=== PATIENT | female | born 1975 | race Caucasian/White ===

== ENCOUNTER 2023-11-30 21:13 | Observation (INO) | payer OTHER, SELFPAY ==
[2023-11-30 21:21] VITALS: BP 134/73; PULSE 66; TEMP 36.6; O2SAT 99; BMI 20.8
--- NOTE | 2023-11-30 21:30 | CT_ITS ---
The [address] [address] Patient Name: RC LEE MRN: [id number] date: 1975 Sex: F Assigned Patient Location: ER Current Patient Location: ER Accession/Order Number: [id number] Exam Date: 11/30/2023 22:35 Report Date: 11/30/2023 23:02 At the request of: DESTINY NUNES Procedure: CT abdomen pelvis w con EXAM: CT abdomen pelvis w con CLINICAL INDICATION: Abdominal pain, hx diverticulitis COMPARISON: None . TECHNIQUE: After the injection of intravenous nonionic iodinated contrast, axial CT of the abdomen, and pelvis was performed from the top of the hemidiaphragms to the inferior osseous pelvis. 2D reformats were obtained. Automatic exposure control radiation dose reduction technology was utilized. FINDINGS: Visualized portion of the lung bases are unremarkable. The liver, spleen, kidneys, adrenal glands and pancreas are within normal limits. Gallbladder is without calcified stones. No abdominal aortic aneurysm. No enlarged lymph nodes, free fluid, or free air. Prominent air and fluid-filled small bowel loops in the right hemiabdomen without overt transition point. Mild diffuse colonic stool burden. Bladder contains a few small intraluminal foci of gas anteriorly. Grossly no suspicious osseous lesions are identified. CT/CT abdomen pelvis w con IMPRESSION: 1. Findings suggesting nonspecific enteritis/ileus. 2. Intravesical gas may reflect recent instrumentation and/or cystitis. Electronically authenticated by: JOAO CHAPIN Date: 11/30/2023 23:02
--- NOTE | 2023-11-30 21:31 | ED_ITS ---
Documented by User: ADELINE Swartz 11/30/23 21:35 HPI - Abdominal Pain General Chief Complaint: Abdominal Pain Stated Complaint: ABDONIMAL PAIN Time Seen by Provider: 11/30/23 21:25 Source: patient Mode of arrival: Wheelchair History of Present Illness HPI narrative: Patient is a 48-year-old female who presents to the emergency department for sudden onset of diffuse low abdominal pain for the last 30 minutes. She states she was eating with a family member in [place] when she had an onset of the pain and drove to this facility for evaluation. She states approximately 5 years ago she was diagnosed with diverticulitis, she had an abscess formation with perforation and had a colostomy that was eventually reversed about 3 years ago. She had a follow-up colonoscopy. She has not had any other abdominal surgeries. She denies urinary symptoms. No flank or back pain. No medications taken prior to arrival. No flulike illness. Related Data Allergies Allergy/AdvReac Type Severity Reaction Status Date / Time No Known Drug Allergies Allergy Verified 11/30/23 21:27 Review of Systems ROS Constitutional Denies: fever or chills Ears, nose, mouth, and throat Denies: throat pain or nasal congestion Cardiovascular Denies: chest pain Respiratory Denies: shortness of breath or cough Gastrointestinal Reports: abdominal pain and nausea; Denies: vomiting or diarrhea Genitourinary Denies: painful urination Musculoskeletal Denies: back pain Integumentary/Breast Denies: rash Endocrine Denies: excessive urination Hematologic/Lymphatic Denies: easy bruising or easy bleeding Exam Narrative Exam Narrative: Gen.: Awake, alert, in no distress; Tearful and anxious Head: Normocephalic, atraumatic ENT: Moist mucous membranes Respiratory: No respiratory distress Gastrointestinal: Abdomen is soft, Tender to palpation in the suprapubic abdomen. Well-healed midline abdominal incision. Voluntary guarding with no rebound. No flank tenderness Extremities: Moves extremities equally, no injuries noted Psych: Tearful, anxious Neuro: No focal neuro deficit Skin: Warm, dry, intact Constitutional Vital Signs, click to edit/add: Last Vital Signs Temp 97.9 F 11/30/23 21:21 Pulse 66 11/30/23 21:21 Resp 16 11/30/23 21:21 BP 134/73 11/30/23 21:21 Pulse Ox 99 11/30/23 21:21 O2 Del Method Room Air 11/30/23 21:21 Course Vital Signs Vital signs: Vital Signs Temperature 97.9 F 11/30/23 21:21 Pulse Rate 66 11/30/23 21:21 Respiratory Rate 16 11/30/23 21:21 Blood Pressure 134/73 11/30/23 21:21 Pulse Oximetry 99 11/30/23 21:21 Oxygen Delivery Method Room Air 11/30/23 21:21 Temperature 97.9 F 11/30/23 21:21 Pulse Rate 66 11/30/23 21:21 Respiratory Rate 16 11/30/23 21:21 Blood Pressure 134/73 11/30/23 21:21 Pulse Oximetry 99 11/30/23 21:21 Oxygen Delivery Method Room Air 11/30/23 21:21 MDM - Abdominal Pain MDM Narrative Medical decision making narrative: 2133: Patient ordered to have IV fluids, pain medication and nausea medication with IV labs, urine and CT ordered for the patient as well. Her vital signs are stable. She is in no acute distress. Case is turned over to attending physician for disposition at this time. Medical Records Attestation: I reviewed the patient's medical records. Lab Data Attestation: I reviewed the patient's lab results. Labs: Lab Results 11/30/23 11/30/23 Range/Units 21:39 21:41 WBC 6.9 (4.0-11.0) 10^3/uL RBC 4.47 (4.20-5.40) 10^6/uL Hgb 12.9 (12.0-16.0) g/dL Hct 39.5 (36.0-48.0) % MCV 88.4 (81.0-99.0) fL MCH 28.9 (26.7-34.0) pg MCHC 32.7 (29.9-35.2) g/dL RDW 13.0 (11.0-15.0) % Plt Count 291 (150-450) 10^3/uL MPV 10.4 (9.5-13.5) fL Neut % (Auto) 39.6 L (43.0-75.0) % Lymph % (Auto) 51.7 (20.5-60.0) % [place] % (Auto) 5.7 (1.7-12.0) % Eos % (Auto) 1.7 (0.9-7.0) % Baso % (Auto) 1.2 (0.2-2.0) % Neut # (Auto) 2.7 (1.4-6.5) 10^3/uL Lymph # (Auto) 3.6 (1.2-3.8) 10^3/uL [place] # (Auto) 0.4 (0.3-0.8) 10^3/uL Eos # (Auto) 0.1 (0.0-0.7) 10^3/uL Baso # (Auto) 0.1 (0.0-0.1) 10^3/uL Abs Immat Gran (auto) 0.01 (0.00-0.03) 10^3/uL Imm/Tot Granulo (auto) 0.1 (0.0-0.5) % Sodium 142 (136-145) mmol/L Potassium 3.5 (3.5-5.1) mmol/L Chloride 104 (98-107) mmol/L Carbon Dioxide 29.3 (21.0-32.0) mmol/L Anion Gap 12.2 BUN 14.0 (7.0-18.0) mg/dL Creatinine 0.83 (0.55-1.02) mg/dL Est GFR ( Amer) >60 (>=60) Est GFR (Non-Af Amer) >60 (>=60) BUN/Creatinine Ratio 16.9 Glucose 101 (74-106) mg/dL Lactate 1.0 (0.4-2.0) mmol/L Calcium 9.3 (8.5-10.1) mg/dL Total Bilirubin 0.3 (0.2-1.0) mg/dL AST 12 L (15-37) U/L ALT 18 (14-59) U/L Alkaline Phosphatase 59 (46-116) U/L Total Protein 7.6 (6.4-8.2) g/dL Albumin 4.1 (3.4-5.0) g/dL Globulin 3.5 g/dL Albumin/Globulin Ratio 1.2 Lipase 33.0 (16.0-77.0) U/L Urine Color Lt. yellow (YELLOW) Urine Clarity Clear (CLEAR) Urine pH 7.0 (5.0-9.0) Ur Specific [place] 1.010 (1.005-1.025) Urine Protein Negative (NEG/TRACE) mg/dL Urine Glucose (UA) Negative (NEGATIVE) mg/dL Urine Ketones Negative (NEGATIVE) mg/dL Urine Occult Blood Negative (NEGATIVE) Urine Nitrite Negative (NEGATIVE) Urine Bilirubin Negative (NEGATIVE) Urine Urobilinogen 0.2 (0.2-1.0) EU/dL Ur Leukocyte Esterase Moderate A (NEGATIVE) Urine RBC None seen (0-2) #/HPF Urine WBC 5-10 A (NONE SEEN) #/HPF Ur Squamous Epith Cells Few A (NONE/RARE) #/LPF Urine Crystals None seen (None Seen) #/HPF Urine Bacteria Small A (NONE SEEN) #/HPF Urine Casts None seen (NONE SEEN) #/LPF Urine Mucus None seen (NONE SEEN) Ur Culture Indicated? Yes Discharge Plan Discharge Chief Complaint: Abdominal Pain Clinical Impression: UTI (urinary tract infection), Enteritis, Abdominal pain Print Language: Malay Referrals: Harrison Gonzalez MD [Primary Care Provider] - 1 week Documented by User: Chino Carvalho MD 12/01/23 00:48 HPI - Abdominal Pain General Chief Complaint: Abdominal Pain Stated Complaint: ABDONIMAL PAIN Time Seen by Provider: 11/30/23 21:25 Related Data Allergies Allergy/AdvReac Type Severity Reaction Status Date / Time No Known Drug Allergies Allergy Verified 11/30/23 21:27 Exam Constitutional Vital Signs, click to edit/add: Last Vital Signs Temp 97.9 F 11/30/23 21:21 Pulse 66 11/30/23 21:21 Resp 16 11/30/23 21:21 BP 134/73 11/30/23 21:21 Pulse Ox 99 11/30/23 21:21 O2 Del Method Room Air 11/30/23 21:21 Course Vital Signs Vital signs: Vital Signs Temperature 97.9 F 11/30/23 21:21 Pulse Rate 66 05/12/24 21:21 Respiratory Rate 16 11/30/23 21:21 Blood Pressure 134/73 11/30/23 21:21 Pulse Oximetry 99 11/30/23 21:21 Oxygen Delivery Method Room Air 11/30/23 21:21 Temperature 97.9 F 11/30/23 21:21 Pulse Rate 66 11/30/23 21:21 Respiratory Rate 16 11/30/23 21:21 Blood Pressure 134/73 11/30/23 21:21 Pulse Oximetry 99 11/30/23 21:21 Oxygen Delivery Method Room Air 11/30/23 21:21 MDM - Abdominal Pain MDM Narrative Medical decision making narrative: 2133: Patient ordered to have IV fluids, pain medication and nausea medication with IV labs, urine and CT ordered for the patient as well. Her vital signs are stable. She is in no acute distress. Case is turned over to attending leonardoy sician for disposition at this time. CT with findings of ileus/enteritis. patient has no nausea of vomiting. No clinical sign of obstruction. UA positive. Patient re examined and still has pain and abdominal tenderness. Additional pain meds ordered along with antibiotics. Discussed with the hospitalist and will plan obs admission mainly due to her continued pain and need for pain medication Lab Data Labs: Lab Results 11/30/23 11/30/23 Range/Units 21:39 21:41 WBC 6.9 (4.0-11.0) 10^3/uL RBC 4.47 (4.20-5.40) 10^6/uL Hgb 12.9 (12.0-16.0) g/dL Hct 39.5 (36.0-48.0) % MCV 88.4 (81.0-99.0) fL MCH 28.9 (26.7-34.0) pg MCHC 32.7 (29.9-35.2) g/dL RDW 13.0 (11.0-15.0) % Plt Count 291 (150-450) 10^3/uL MPV 10.4 (9.5-13.5) fL Neut % (Auto) 39.6 L (43.0-75.0) % Lymph % (Auto) 51.7 (20.5-60.0) % [place] % (Auto) 5.7 (1.7-12.0) % Eos % (Auto) 1.7 (0.9-7.0) % Baso % (Auto) 1.2 (0.2-2.0) % Neut # (Auto) 2.7 (1.4-6.5) 10^3/uL Lymph # (Auto) 3.6 (1.2-3.8) 10^3/uL [place] # (Auto) 0.4 (0.3-0.8) 10^3/uL Eos # (Auto) 0.1 (0.0-0.7) 10^3/uL Baso # (Auto) 0.1 (0.0-0.1) 10^3/uL Abs Immat Gran (auto) 0.01 (0.00-0.03) 10^3/uL Imm/Tot Granulo (auto) 0.1 (0.0-0.5) % Sodium 142 (136-145) mmol/L Potassium 3.5 (3.5-5.1) mmol/L Chloride 104 (98-107) mmol/L Carbon Dioxide 29.3 (21.0-32.0) mmol/L Anion Gap 12.2 BUN 14.0 (7.0-18.0) mg/dL Creatinine 0.83 (0.55-1.02) mg/dL Est GFR ( Amer) >60 (>=60) Est GFR (Non-Af Amer) >60 (>=60) BUN/Creatinine Ratio 16.9 Glucose 101 (74-106) mg/dL Lactate 1.0 (0.4-2.0) mmol/L Calcium 9.3 (8.5-10.1) mg/dL Total Bilirubin 0.3 (0.2-1.0) mg/dL AST 12 L (15-37) U/L ALT 18 (14-59) U/L Alkaline Phosphatase 59 (46-116) U/L Total Protein 7.6 (6.4-8.2) g/dL Albumin 4.1 (3.4-5.0) g/dL Globulin 3.5 g/dL Albumin/Globulin Ratio 1.2 Lipase 33.0 (16.0-77.0) U/L Urine Color Lt. yellow (YELLOW) Urine Clarity Clear (CLEAR) Urine pH 7.0 (5.0-9.0) Ur Specific [place] 1.010 (1.005-1.025) Urine Protein Negative (NEG/TRACE) mg/dL Urine Glucose (UA) Negative (NEGATIVE) mg/dL Urine Ketones Negative (NEGATIVE) mg/dL Urine Occult Blood Negative (NEGATIVE) Urine Nitrite Negative (NEGATIVE) Urine Bilirubin Negative (NEGATIVE) Urine Urobilinogen 0.2 (0.2-1.0) EU/dL Ur Leukocyte Esterase Moderate A (NEGATIVE) Urine RBC None seen (0-2) #/HPF Urine WBC 5-10 A (NONE SEEN) #/HPF Ur Squamous Epith Cells Few A (NONE/RARE) #/LPF Urine Crystals None seen (None Seen) #/HPF Urine Bacteria Small A (NONE SEEN) #/HPF Urine Casts None seen (NONE SEEN) #/LPF Urine Mucus None seen (NONE SEEN) Ur Culture Indicated? Yes Discharge Plan Discharge Chief Complaint: Abdominal Pain Clinical Impression: UTI (urinary tract infection), Enteritis, Abdominal pain Print Language: Malay Referrals: Harrison Gonzalez MD [Primary Care Provider] - 1 week
[2023-11-30 21:47] LABS: Bilirubin Urine NEGATIVE (NEGATIVE); Blood Urine NEGATIVE (NEGATIVE); Clarity Urine CLEAR (CLEAR); Color Urine LT. YELLOW (YELLOW); Glucose Urine UA NEGATIVE (NEGATIVE); Ketones Urine NEGATIVE (NEGATIVE); Leukocyte Esterase Urine MODERATE (NEGATIVE); Nitrite Urine NEGATIVE (NEGATIVE); Protein Urine NEGATIVE (NEG/TRACE); Urobilinogen Urine 0.2 EU/dL (0.2-1.0)
[2023-11-30] MEDS: 0.9 % SODIUM CHLORIDE 1,000 ML 1000 ML IV (21:48)
[2023-11-30 21:49] LABS: Urine Microscopic Indicated YES
[2023-11-30] MEDS: HYDROMORPHONE HCL 1 MG/ML CARTRIDGE IVP (21:49)
[2023-11-30] MEDS: ONDANSETRON PF 4 MG/2 ML VIAL IV (21:49)
[2023-11-30 21:50] LABS: Basophils Absolute Auto 0.1 10^3/uL (0.0-0.1); Basophils Percent Auto 1.2 % (0.2-2.0); Eosinophils Absolute Auto 0.1 10^3/uL (0.0-0.7); Eosinophils Percent Auto 1.7 % (0.9-7.0); Hematocrit 39.5 % (36.0-48.0); Hemoglobin 12.9 g/dL (12.0-16.0); Immature Granulocytes Abs Auto 0.01 10^3/uL (0.00-0.03); Immature Granulocytes Pct Auto 0.1 % (0.0-0.5); Lymphocytes Absolute Auto 3.6 10^3/uL (1.2-3.8); Lymphocytes Percent Auto 51.7 % (20.5-60.0); Mean Corpuscular HGB Conc 32.7 g/dL (29.9-35.2); Mean Corpuscular Hemoglobin 28.9 pg (26.7-34.0); Mean Corpuscular Volume 88.4 fL (81.0-99.0); Mean Platelet Volume 10.4 fL (9.5-13.5); Monocytes Absolute Auto 0.4 10^3/uL (0.3-0.8); Monocytes Percent Auto 5.7 % (1.7-12.0); Neutrophils Absolute Auto 2.7 10^3/uL (1.4-6.5); Neutrophils Percent Auto 39.6 % (43.0-75.0); Platelet Count 291 10^3/uL (150-450); Red Blood Count 4.47 10^6/uL (4.20-5.40); White Blood Count 6.9 10^3/uL (4.0-11.0)
[2023-11-30 21:56] LABS: RBC Urine NONE SEEN #/HPF (0-2)
[2023-11-30 21:57] LABS: Bacteria Urine SMALL #/HPF (NONE SEEN); Cast Seen? NONE SEEN #/LPF (NONE SEEN); Crystals Seen? None Seen #/HPF (None Seen); Mucus Urine NONE SEEN (NONE SEEN); Squamous Epithelial Cell Urine FEW #/LPF (NONE/RARE); Urine Culture Indicated YES
[2023-11-30 22:15] LABS: Alanine Aminotransferase 18 U/L (14-59); Albumin Globulin Ratio 1.2; Albumin Level 4.1 g/dL (3.4-5.0); Alkaline Phosphatase 59 U/L (46-116); Anion Gap 12.2; Aspartate Amino Transferase 12 U/L (15-37); BUN Creatinine Ratio 16.9; Bilirubin Total 0.3 mg/dL (0.2-1.0); Calcium 9.3 mg/dL (8.5-10.1); Carbon Dioxide 29.3 mmol/L (21.0-32.0); Chloride 104 mmol/L (98-107); Estimated GFR (African America >60 (>=60); Estimated GFR (Non-African Ame >60 (>=60); Globulin 3.5 g/dL; Glucose 101 mg/dL (74-106); Potassium 3.5 mmol/L (3.5-5.1); Sodium 142 mmol/L (136-145); Total Protein 7.6 g/dL (6.4-8.2)
[2023-12-01] MEDS: METRONIDAZOLE/SODIUM CHLORIDE 500 MG/100 ML PREMIX 100 MG IV ×2 (00:04→09:06)
[2023-12-01] MEDS: HYDROMORPHONE HCL 1 MG/ML CARTRIDGE IVP (00:05)
[2023-12-01 01:02] VITALS: PULSE 64; O2SAT 95
[2023-12-01 01:03] VITALS: BP 84/46
[2023-12-01] MEDS: CIPROFLOXACIN IN 5 % DEXTROSE 400 MG/200 ML PIGGYBACK 200 MG IV (01:08)
[2023-12-01 01:23] VITALS: BP 104/67; PULSE 61; TEMP 36.6; O2SAT 96; BMI 21.3
[2023-12-01] MEDS: MORPHINE SULFATE 2 MG/ML SYRINGE IV (02:52)
[2023-12-01] MEDS: ONDANSETRON PF 4 MG/2 ML VIAL IV ×2 (02:52→09:16)
[2023-12-01] MEDS: 0.9 % SODIUM CHLORIDE 1,000 ML 125 ML IV (02:52)
[2023-12-01 05:00] LABS: Basophils Absolute Auto 0.1 10^3/uL (0.0-0.1); Basophils Percent Auto 0.6 % (0.2-2.0); Eosinophils Absolute Auto 0.1 10^3/uL (0.0-0.7); Hematocrit 38.3 % (36.0-48.0); Hemoglobin 12.1 g/dL (12.0-16.0); Immature Granulocytes Abs Auto 0.02 10^3/uL (0.00-0.03); Immature Granulocytes Pct Auto 0.3 % (0.0-0.5); Lymphocytes Absolute Auto 3.1 10^3/uL (1.2-3.8); Lymphocytes Percent Auto 39.7 % (20.5-60.0); Mean Corpuscular HGB Conc 31.6 g/dL (29.9-35.2); Mean Corpuscular Hemoglobin 28.5 pg (26.7-34.0); Mean Corpuscular Volume 90.1 fL (81.0-99.0); Mean Platelet Volume 10.4 fL (9.5-13.5); Monocytes Absolute Auto 0.5 10^3/uL (0.3-0.8); Monocytes Percent Auto 6.1 % (1.7-12.0); Neutrophils Absolute Auto 4.1 10^3/uL (1.4-6.5); Neutrophils Percent Auto 52.3 % (43.0-75.0); Platelet Count 266 10^3/uL (150-450); Red Blood Count 4.25 10^6/uL (4.20-5.40); Red Cell Distribution Width 13.1 % (11.0-15.0); White Blood Count 7.8 10^3/uL (4.0-11.0)
[2023-12-01 05:14] VITALS: BP 102/61; PULSE 79; TEMP 36.7; O2SAT 96
[2023-12-01 05:17] LABS: Albumin Globulin Ratio 1.1; Albumin Level 3.5 g/dL (3.4-5.0); Chloride 106 mmol/L (98-107); Estimated GFR (African America >60 (>=60); Estimated GFR (Non-African Ame >60 (>=60); Glucose 87 mg/dL (74-106); Sodium 143 mmol/L (136-145)
[2023-12-01 05:26] LABS: Alanine Aminotransferase 14 U/L (14-59); Anion Gap 9.1; Aspartate Amino Transferase 11 U/L (15-37); BUN Creatinine Ratio 13.8; Bilirubin Total 0.4 mg/dL (0.2-1.0); Calcium 8.8 mg/dL (8.5-10.1); Carbon Dioxide 31.8 mmol/L (21.0-32.0); Potassium 3.9 mmol/L (3.5-5.1)
[2023-12-01 05:27] LABS: Alkaline Phosphatase 48 U/L (46-116); Amylase 60 U/L (25-115); Globulin 3.2 g/dL; Total Protein 6.7 g/dL (6.4-8.2)
--- NOTE | 2023-12-01 07:35 | P.HP_ITS ---
HPI H&P: HPI History of Present Illness Chief complaint: ABDONIMAL PAIN Narrative: Patient is a History, about 5 years ago had severe diverticulitis with abscess formation and had to have a colostomy placed. That was reversed 3 years ago. The day of admission, the day before she was fine, but the day of admission she did have severe abdominal pain that was consistent with her feeling of the diverticulitis in the past. She did not have fever this time however. She presented with to the emergency room was upper and lower abdominal pain. CT scan suggested ileus. No obvious diverticulitis or abscess formation was noted. She was also found to have an acute UTI. With the severe of her pain she was observed overnight. When I was evaluating her up on the medical surgical floor this morning, her pain she felt was overall improved. Her appetite is coming back. Passing gas. Opioid HPI Opioid Management Most Recent Opioid Data: Last Pain Scale 7 12/01/23 03:00 Last Pain Assessment 12/01/23 06:00 Last MAR Pain Assessment 12/01/23 04:23 Last ORT Total Score 0 12/01/23 01:23 Last ORT Risk Category Low Risk 12/01/23 01:23 Review of Systems ROS Status of ROS 10 or more systems reviewed and unremark able except as noted in history and below PFSH PFS Medical History (Updated 12/01/23 @ 07:37 by Harrison Gonzalez MD) Diverticulitis ?K57.92 - Diverticulitis of intestine, part unspecified, without perforation or abscess without bleeding (ICD-10) Surgical History (Updated 12/01/23 @ 01:22 by Rubi Foss) H/O hernia repair ?Z98.890 - Other specified postprocedural states (ICD-10) ?Z87.19 - Personal history of other diseases of the digestive system (ICD-10) History of colostomy reversal ?Z98.890 - Other specified postprocedural states (ICD-10) Colostomy status ?Z93.3 - Colostomy status (ICD-10) History of bowel resection ?Z90.49 - Acquired absence of other specified parts of digestive tract (ICD- 10) Family History (Updated 12/01/23 @ 01:19 by Rubi Foss) Grandfather Family history of CHF (congestive heart failure) Family history of myocardial infarction Grandmother Family history of cancer Aunt Family history of cancer Family history of diabetes mellitus Mother Family history of hypertension Father Family history of myocardial infarction Social History (Updated 12/01/23 @ 01:21 by Rubi Foss) Within the past year, how often did you have a drink containing alcohol: never Score interpretation: A score less than 3 is consistent with normal alcohol consumption. Do you use any of these nicotine containing products: vaping products Non-prescribed substance use: denies use Previous occupational history: registered nurse Highest level of school completed/degree received: Associate degree: academic program Are you now , , , , never or living with a partner: In a typical week, how many times do you talk on the telephone with family, friends, or neighbors: 3 or more times per week How often do you get together with friends or relatives: 3 or more times per week How often do you attend samaritan or faith services: 1-3 times per year Little interest or pleasure in doing things: not at all Feeling down, depressed, or hopeless: not at all Feel stressed/tense/nervous/anxious/difficulty sleeping: not at all Do you think of yourself as: straight/heterosexual Gender Identity: female Meds Home Medications and Allergies Home Medications ?Medication ?Instructions ?Recorded ?Confirmed ?Type ciprofloxacin HCl 500 mg tablet 500 mg PO BID #14 tabs 12/01/23 Rx (Cipro) phenazopyridine 200 mg tablet 200 mg PO Q8H 6 doses #6 tabs 12/01/23 Rx (Pyridium) phenazopyridine 200 mg tablet 200 mg PO Q8H 6 doses #6 tabs 12/01/23 Rx (Pyridium) Allergies Allergy/AdvReac Type Severity Reaction Status Date / Time No Known Drug Allergies Allergy Verified 11/30/23 21:27 Exam Constitutional Vital Signs, click to edit/add: Last Vital Signs Temp 98.1 F 12/01/23 05:14 Pulse 79 12/01/23 05:14 Resp 20 12/01/23 05:14 BP 102/61 12/01/23 05:14 Pulse Ox 96 12/01/23 05:14 O2 Del Method Room Air 12/01/23 05:14 Documenting provider has reviewed patient's vital signs: yes Common normals: no apparent distress Respiratory Common normals: normal respiratory effort Cardio Common normals: regular rate and regular rhythm GI Common normals: Normal to inspection, nondistended, normoactive bowel sounds present, soft to palpation and non-tender Palpation: no rebound tenderness present Results Labs Labs: Short CBC 11/30/23 12/01/23 Range/Units 21:39 04:25 WBC 6.9 7.8 (4.0-11.0) 10^3/uL Hgb 12.9 12.1 (12.0-16.0) g/dL Hct 39.5 38.3 (36.0-48.0) % Plt Count 291 266 (150-450) 10^3/uL BMP 11/30/23 12/01/23 21:39 04:25 Sodium 142 143 Potassium 3.5 3.9 Chloride 104 106 Carbon Dioxide 29.3 31.8 BUN 14.0 11.0 Creatinine 0.83 0.80 Glucose 101 87 Calcium 9.3 8.8 Liver Function 11/30/23 12/01/23 Range/Units 21:39 04:25 Total Bilirubin 0.3 0.4 (0.2-1.0) mg/dL AST 12 L 11 L (15-37) U/L ALT 18 14 (14-59) U/L Alkaline Phosphatase 59 48 (46-116) U/L Albumin 4.1 3.5 (3.4-5.0) g/dL Urine 11/30/23 Range/Units 21:41 Urine Color Lt. yellow (YELLOW) Urine Clarity Clear (CLEAR) Urine pH 7.0 (5.0-9.0) Ur Specific [place] 1.010 (1.005-1.025) Urine Protein Negative (NEG/TRACE) mg/dL Urine Glucose (UA) Negative (NEGATIVE) mg/dL Assessment and Plan Assessment and Plan (1) Acute abdominal pain: (2) UTI (urinary tract infection): (3) Enteritis: Plan Acute abdominal pain in a patient with a known history of severe diverticulitis with abscess formation. CT scan shows possible ileus. Patient is passing gas. No emesis. Abdominal exam is much improved she states from comparing to the abdominal exams in the emergency room. She has not eaten much yet at this point though. Will advance her diet this morning. If she tolerates breakfast she wi ll be discharged home in improving condition. Medications see list. Follow-up with me in the office within this next week. Acute UTI-discharged on Cipro, will follow-up on culture later this week. Added Pyridium and Tylenol this morning. Admission status: Patient placed in observation status overnight secondary to the severity of her pain in the emergency room and on improving with ER t reatment. Her pain is improved this morning however. Maintain observation status. If her condition deteriorates we will change patient to inpatient status as her medically necessary treatment will span 2 midnights
--- NOTE | 2023-12-01 07:39 | P.DS_ITS ---
DS: Providers Provider Date of admission: 12/01/23 01:21 Primary care physician: Harrison Gonzalez MD DS: Diagnosis Discharge Diagnosis (1) Acute abdominal pain: (2) UTI (urinary tract infection): (3) Enteritis: DS: Summary Hospital Course Hospital Course: Patient with a history of severe diverticulitis resulting in abscess formation and colostomy placement 5 years ago, reversed 3 years ago, presented to the emergency room with pain consistent with her previous diverticulitis. Acute in onset. No fevers this time. In ER CT scan suggested ileus. Pain unable to be controlled in ER. Patient was observed overnight. Her pain is much improved this morning. Her laboratory evaluation is stable. She does have an acute UTI. She was on antibiotics for that. If she is able to tolerate breakfast should be discharged home in improving condition. Medications see list. Follow-up with me later this week. Time Spent with Patient Time attestation: Total time spent providing and/or coordinating discharge services: Time spent: less than 30 minutes Exam Constitutional Vital Signs, click to edit/add: Last Vital Signs Temp 98.1 F 12/01/23 05:14 Pulse 79 12/01/23 05:14 Resp 20 12/01/23 05:14 BP 102/61 12/01/23 05:14 Pulse Ox 96 12/01/23 05:14 O2 Del Method Room Air 12/01/23 05:14 Documenting provider has reviewed patient's vital signs: yes Common normals: no apparent distress Respiratory Common normals: normal respiratory effort Cardio Common normals: regular rate and regular rhythm GI Common normals: Normal to inspection, nondistended, normoactive bowel sounds present, soft to palpation and non-tender Palpation: no rebound tenderness present DS: Data Data Completed and Pending Labs on day of discharge: Labs from last 24 hours 12/01/23 11/30/23 11/30/23 04:25 21:41 21:39 WBC 7.8 6.9 RBC 4.25 4.47 Hgb 12.1 12.9 Hct 38.3 39.5 MCV 90.1 88.4 MCH 28.5 28.9 MCHC 31.6 32.7 RDW 13.1 13.0 Plt Count 266 291 MPV 10.4 10.4 Neut % (Auto) 52.3 39.6 L Lymph % (Auto) 39.7 51.7 [place] % (Auto) 6.1 5.7 Eos % (Auto) 1.0 1.7 Baso % (Auto) 0.6 1.2 Neut # (Auto) 4.1 2.7 Lymph # (Auto) 3.1 3.6 [place] # (Auto) 0.5 0.4 Eos # (Auto) 0.1 0.1 Baso # (Auto) 0.1 0.1 Abs Immat Gran (auto) 0.02 0.01 Imm/Tot Granulo (auto) 0.3 0.1 Sodium 143 142 Potassium 3.9 3.5 Chloride 106 104 Carbon Dioxide 31.8 29.3 Anion Gap 9.1 12.2 BUN 11.0 14.0 Creatinine 0.80 0.83 Est GFR ( Amer) >60 >60 Est GFR (Non-Af Amer) >60 >60 BUN/Creatinine Ratio 13.8 16.9 Glucose 87 101 Lactate 1.0 Calcium 8.8 9.3 Total Bilirubin 0.4 0.3 AST 11 L 12 L ALT 14 18 Alkaline Phosphatase 48 59 Total Protein 6.7 7.6 Albumin 3.5 4.1 Globulin 3.2 3.5 Albumin/Globulin Ratio 1.1 1.2 Amylase 60 Lipase 26.0 33.0 Urine Color Lt. yellow Urine Clarity Clear Urine pH 7.0 Ur Specific [place] 1.010 Urine Protein Negative Urine Glucose (UA) Negative Urine Ketones Negative Urine Occult Blood Negative Urine Nitrite Negative Urine Bilirubin Negative Urine Urobilinogen 0.2 Ur Leukocyte Esterase Moderate A Urine RBC None seen Urine WBC 5-10 A Ur Squamous Epith Cells Few A Urine Crystals None seen Urine Bacteria Small A Urine Casts None seen Urine Mucus None seen Ur Culture Indicated? Yes Discharge Plan Discharge Disposition: Home, Self-Care Discharge Medications: New ciprofloxacin HCl [Cipro] 500 mg tablet 500 mg PO BID Qty: 14 0RF phenazopyridine [Pyridium] 200 mg tablet 200 mg PO Q8H Qty: 6 0RF phenazopyridine [Pyridium] 200 mg tablet 200 mg PO Q8H Qty: 6 0RF Print Language: Maldivian Forms: Portal Instructions
[2023-12-01] MEDS: PHENAZOPYRIDINE 100 MG TABLET PO (08:37)
[2023-12-01] MEDS: ACETAMINOPHEN 500 MG TABLET 1000 MG PO (08:37)
--- NOTE | 2023-12-02 14:10 | CM.DCFOLLOWU ---
1st attempt 12/02/23, no answer
--- NOTE | 2023-12-03 12:24 | CM.DCFOLLOWU ---
2nd attempt, no answer 12/03/23
--- NOTE | 2023-12-04 11:45 | CM.DCFOLLOWU ---
3rd attempt, no answer 12/04/23 3 attempts made, no answer each time
== END 2023-12-01 10:40 | disposition home or self-care (01) ==
LOC: ER 22:03 → MS 12-01 01:22
PROVIDERS: Nurse Practitioner Acute Care; Physician Assistant; Admitting Provider Family Medicine; Emergency Provider Internal Medicine; PCP Family Medicine; Visit Provider Family Medicine
DX: N39.0 Urinary tract infection, site not specified (principal); K52.9 Noninfective gastroenteritis and colitis, unspecified; R10.9 Unspecified abdominal pain; B95.7 Other staphylococcus as the cause of diseases classified elsewhere; B96.20 Unspecified Escherichia coli [E. coli] as the cause of diseases classified elsewhere; Z98.890 Other specified postprocedural states; Z90.49 Acquired absence of other specified parts of digestive tract; F17.290 Nicotine dependence, other tobacco product, uncomplicated
CPT/HCPCS: 36415; 74177; 80053; 81001; 82150; 83605; 83690; 85025; 87086; 87150; 87186; 96365; 96367; 96375; 96376; 99285; G0378; J1170; Q9967

== ENCOUNTER 2025-06-20 16:49 | Outpatient (OUT) | payer BC, SELFPAY ==
--- OUTSIDE RECORDS SUMMARY | 2025-06-20 16:55 | XMS_ITS | Clinical Summary ---
Author Organization [facility] Address [address] [place] [address] Care Team Providers Care Perinatal Educator Name Role Phone Unavailable Primary Care Provider Unavailabl e Allergies Active AllergyReactionsCriticalityNoted OpeoXcvfclenYsgiiyadQfrwxox07/13/2024 Other Reaction(s): Itching- didnt help Medications MedicationSigDispense QuantityRefillsLast FilledStart DateEnd DateStatus phenazopyridine (Pyridium) 200 MG tablet Take 200 mg by mouth every 8 (eight) hours12/01/2023ctive traMADol (Ultram) 50 MG tablet 1 (one) time each day at the same timeActive sulfamethoxazole-trimethoprim (Bactrim) 400-80 MG tablet Take by mouthActive Active Problems No known active problems Family History Medical HistoryRelationNameCommentsHeart diseaseFatherHypertensionMotherRelation NameStatusCommentsFatherAliveMotherAlive Social History Tobacco UseTypesPacks/DayYears UsedDateSmoking Tobacco: FormerCigarettes Smokeless Tobacco: Never Tobacco Cessation:Counseling Given: Not Answered Alcohol UseStandard Drinks/WeekCommentsYes0 (1 standard drink = 0.6 oz pure alcohol)caffeine: 1-2 cups per dayCommentsUnknownSex and Gender InformationValueDate RecordedSex Assigned at AqpvcHblxid51/20/2023 10:25 AM EDT Legal EaxNoasny24/15/2023 7:26 PM EDTGender FyuwdejeOghgqs62/20/2023 10:25 AM EDTSexual FobtutlvequTvbuseqn10/20/2023 10:25 AM EDT Last Filed Vital Signs Vital SignReadingTime TakenCommentsBlood Vyhajjvl147/60002/17/2019 12:00 PM EDT Pulse--Temperature--Respiratory Rate--Oxygen Saturation--Inhaled Oxygen Concentration--Vkingk23.9 kg (110 lb)02/17/2019 12:00 PM MIZGmpwzw036.6 cm (5' 6 )01/07/2022 12:00 PM EDTBody Mass Index17.75002/17/2019 12:00 PM EDT Plan of Treatment DateTypeDepartmentCare Team (Latest Contact Info)Wvqfgilompr33/25/2026 4:05 PM EDTOffice Visit [facility] [address] [place] [address] Micaela Barros MD [address] [place] [address] Insurance
--- OUTSIDE RECORDS SUMMARY | 2025-06-20 16:57 | XMS_ITS | CCD ---
Author Organization [facility] Care Team Providers Care Bung Dropper Name Role Phone ELIF GONZALEZ Admitting Unavailable TRICIA GONZALEZLAS Attending Unavailable TRICIA GONZALEZLAS Consulting Unavailable FRANCESCA CATHERINE V Consulting Unavailable HOY, ELIF Admitting Unavailable HOY, ELIF Attending Unavailable TORI FELTON Admitting Unavailable TORI FELTON Attending Unavailable TORI FELTON Consulting Unavailable DO Umer Serna Attending Provider [phone] MD Elif Gonzalez Primary Care Provider [phone] MD Elif Gonzalez Primary Care Provider [phone] DO Umer Serna Attending Provider MD Elif Gonzalez Attending Provider DO Taylor Jason Referring Provider MD Elif Gonzalez Primary Care Provider [phone] Kareem DO Umer CABRALES Attending Provider Elif Gonzalez MD Primary Care Provider [phone] Elif Gonzalez MD Attending Provider Kareem Umer CABRALES Admitting Unavailable Kareem Umer CABRALES Attending Unavailable Elif Gonzalez M Primary Care Unavailable Tricia Gonzalezlas M Admitting Unavailable Eilf Gonzalez M Attending Unavailable Elif Gonzalez M Primary Care Unavailable Elif Gonzalez M Admitting Unavailable Elif Gonzalez M Attending Unavailable Elif Gonzalez M Primary Care Unavailable Unavailable Primary Care Provider UnavailMICAELA Mccoy Attending Unavailable Allergies Allergy ClassificationReported Allergen(s)Allergy TypeDate of OnsetReaction(s) Facility (3 sources)MorphineDrug Wxebfct04-15-3571MfpasptFOAM Healthcare Medications Current Medications MedicationDrug Class(es)DatesSig (Normalized)Sig (Original)amoxicillin 500 mg oral capsule (2 sources)Penicillin-class AntibacterialStart: 98-49-5279mufj 1 capsule by mouth three times dailyAmoxicillin 500 mg capsule Active 500 MG PO Three times daily 21 February 23, 2024 12:00amnaproxen 500 mg oral tablet (2 sources)Nonsteroidal Anti-inflammatory DrugStart: 00-14-5978fyzi 1 tablet by mouth twice daily as needed for painNaproxen 500 mg tablet Active 500 MG PO Twice daily as needed for pain 14 February 23, 2024 12:00amphenazopyridine hydrochloride 200 mg delayed release oral tablet (3 sources)Start: 71-85-5841ohyz 1 tablet by mouth every eight hours phenazopyridine (Pyridium) 200 MG tablet Take 200 mg by mouth every 8 (eight) hours 12/01/2023 Activesulfamethoxazole 400 mg / trimethoprim 80 mg oral tablet (2 sources)Dihydrofolate Reductase Inhibitor Antibacterial, Sulfonamide Antimicrobialsulfamethoxazole-trimethoprim (Bactrim) 400-80 MG tablet Take by mouth ActivetraMADol hydrochloride 50 mg oral tablet (3 sources)Opioid AgonisttraMADol (Ultram) 50 MG tablet 1 (one) time each day at the same time Active Problems Active Problems Problem ClassificationProblemDateDocumented DateEpisodic/ChronicDisorders of teeth and jaw (3 sources)Toothache; Translations: [Other specified disorders of teeth and supporting structures]33-69-2474IawyrdqkTkhwh and unspecified benign neoplasm (2 sources)Melanocytic nevus of trunk; Translations: [Melanocytic nevi of trunk] 62-53-1452QmjrvtwaOavmh circulatory disease (2 sources)Spider nevus; Translations: [Nevus, non-neoplastic]86-02-7410Zduklfir Other screening for suspected conditions (not mental disorders or infectious disease) (4 sources)Encounter for screening for malignant neoplasm of cervix; Translations: [ENC SCREENING MALIG NEOPLASM CERV]Onset: 76-49-1892NwyfxeilAyidd skin disorders (2 sources)Lentiginosis; Translations: [Other melanin hyperpigmentation] 42-02-9556HljpesvbBosaw skin disorders (2 sources)Seborrheic keratosis; Translations: [Other seborrheic keratosis] 04-67-4570Nvpuqpgz Past or Other Problems Problem ClassificationProblemDateDocumented DateEpisodic/ChronicUrinary tract infections (1 source)Urinary tract infection, site not specified; Translations: [Urinary tract infection, site not specified]Onset: 45-26-7507Hyyznjyr Results Test NameValueInterpretationReference RangeFacilityUS renal BIon 87-39-6665WR renal [facility] [place] [address] [place] [address] Ultrasound Report Signed Patient: Rc Mcgraw MR#: [id number] : 1975 Acct:[id number] Age/Sex: 49 / F ADM Date: 10/28/24 Loc: Room: Type: [facility] Attending Dr: Elif Gonzalez MD Ordering Provider: Elif Gonzalez MD Date of Service: 10/28/24 US/US renal BI: R82.90 Copies to: Elif Gonzalez MD BILATERAL RENAL AND BLADDER ULTRASOUND CLINICAL HISTORY: Frequent UTIs. COMPARISON: None FINDINGS: Estimation of renal size is approximately 9.98 cm on the right and 10.15 cm on the left. No contour deforming mass, shadowing stone or hydronephrosis. The urinary bladder is partially distended with a volume of 313.03 ml. No shadowing stone or focal lesion. No significant postvoid residual. Incidental note is made of fluid within the endometrial canal. US/US renal BI IMPRESSION: No acute findings. Impression dictated by: Jerald Coker Jr., D.O.10/28/2024 4:02 PM Dictation Location: [place] [address] Tech: Diane Block Transcribed By: AILIN 10/28/24 1602 Dictated By: Jerald Coker Jr, DO 10/28/24 1601 Signed By: 10/28/24 1602[facility] Physician GroupAutomated basophil %Ordered By: Umer Serna on 65-89-4362Glftrzauy/100 WBC (Bld)1.0 %Normal.[facility] HospitalComment on above:Performed By: #### PILLAR TSH, PILLAR CBC, PILLAR LIPID, PILLAR BMP #### [facility] [address] [place] [address] USAAutomated basophil countOrdered By: Umer Serna on 08-23-3191Yvykdeuev (Bld) [#/Vol]0.0 10*3/uLNormal0.0-0.2FOhio State University Wexner Medical CenterComment on above:Result Comment: PERFORMED BY: [place] [address] PATHOLOGIST SENIOR PROJECT MANAGER ENGINEERING THEO FIELD M.D.Performed By: #### PILLAR TSH, PILLAR CBC, PILLAR LIPID, PILLAR BMP #### [place] [address] USAAutomated blood monocyte countOrdered By: Umer Serna on 31-37-8606Hznejzslk (Bld) [#/Vol]0.4 10*3/uLNormal0.0-0.8[facility] HospitalComment on above:Performed By: #### PILLAR TSH, PILLAR CBC, PILLAR LIPID, PILLAR BMP #### [facility] [address] [place] [address] USAAutomated eosinophil %Ordered By: Umer Serna on 05-06-2024 Eosinophils/100 WBC (Bld)1.3 %Normal.[facility] Bryan HospitalComment on above:Performed By: #### PILLAR TSH, PILLAR CBC, PILLAR LIPID, PILLAR BMP #### [facility] [address] [place] [address] USAAutomated eosinophil countOrdered By: Umer Serna on 36-92-7523Udxstfdctjm (Bld) [#/Vol]0.1 10*3/uLNormal0.0-0.45[facility] Bryan HospitalComment on above:Performed By: #### PILLAR TSH, PILLAR CBC, PILLAR LIPID, PILLAR BMP #### [place] [address] USAAutomated monocyte %Ordered By: Umer Serna on 05-06-2024 Monocytes/100 WBC (Bld)8.1 %Normal.[facility] Bryan HospitalComment on above:Performed By: #### PILLAR TSH, PILLAR CBC, PILLAR LIPID, PILLAR BMP #### [facility] [address] [place] [address] USAAutomated neutrophil %Ordered By: Umer Kareem on 05-06-2024 Neutrophils/100 WBC (Bld)49.8 %Normal.[facility] Bryan HospitalComment on above:Performed By: #### PILLAR TSH, PILLAR CBC, PILLAR LIPID, PILLAR BMP #### [facility] [address] [place] [phone] USACalcium [Mass/volume] in Serum or PlasmaOrdered By: Umer Serna on 01-76-2393Ftqsdev [Mass/Vol]9.9 mg/dLNormal8.6-10.3FOhio State University Wexner Medical CenterComment on above:Performed By: #### PILLAR TSH, PILLAR CBC, PILLAR LIPID, PILLAR BMP #### [facility] [address] [place] [phone] USACarbon dioxide, total [Moles/volume] in Serum or Plasma Ordered By: Umerkerry Serna on 59-56-4169MS3 [Moles/Vol]29.2 mmol/PBzpgjf99.0-31.0 [facility] HospitalComment on above:Performed By: #### PILLAR TSH, PILLAR CBC, PILLAR LIPID, PILLAR BMP #### [facility] [address] [place] [phone] USAChloride [Moles/volume] in Serum or PlasmaOrdered By: Umer Serna on 22-23-3517Wxyipwgm [Moles/Vol]105 mmol/YLazusy22-169KjhbscuckParkview Health Bryan HospitalComment on above:Performed By: #### PILLAR TSH, PILLAR CBC, PILLAR LIPID, PILLAR BMP #### [facility] [address] [place] [address] USACholesterol [Mass/volume] in Serum or PlasmaOrdered By: Umer Serna on 68-50-4363Demoldtzhhr [Mass/Vol]218 mg/qXXudm964-012UcvvdankxParkview Health Bryan HospitalComment on above:Chol less than 200 mg/dl low riskChol 201-239 mg/dl borderline riskChol 240 mg/dl and greater high riskResult Comment: Chol less than 200 mg/dl low risk Chol 201-239 mg/dl borderline risk Chol 240 mg/dl and greater high riskPerformed By: #### PILLAR TSH, PILLAR CBC, PILLAR LIPID, PILLAR BMP #### [facility] [address] [place] [address] USACholesterol in LDL Calc [Mass/Vol]Ordered By: Umer Serna on 68-31-1727Lzgbrpadbob in LDL [Mass/Vol]119 mg/dLHigh0-100[facility] HospitalComment on above:LDL ATP III CLASSIFICATIONLDL less than 100 mg/dL OptimalLDL 100-129 mg/dL Near or above ifeezxzEND293-330 mg/dL Borderline highLDL 160-189 mg/dL HighLDL greater than 189 mg/dL Very highCholesterol in VLDL Calc [Mass/Vol]Ordered By: Umer Serna on 70-21-2678Jljuahdyssp in VLDL [Mass/Vol]17 mg/dLParkview Health Bryan HospitalCreatinine [Mass/volume] in Serum or PlasmaOrdered By: Umer Serna on 91-62-0014Dxunatprja [Mass/Vol]0.81 mg/dLNormal0.60-1.20[facility] Bryan HospitalComment on above:Performed By: #### PILLAR TSH, PILLAR CBC, PILLAR LIPID, PILLAR BMP #### [facility] [address] [place] [address] USAEmployee Basic Metabolic Panelon 72-50-1637YOT/1.73 sq M.predicted MDRD (S/P/Bld) [Vol rate/Area]mL/min/{1.73_m2}NormalThe Critical Access Hospital Physician GroupComment on above:Performed By: #### PILLAR TSH, PILLAR CBC, PILLAR LIPID, PILLAR BMP #### [facility] [address] [place] [address] USAEmployee Complete Blood Counton 07-14-7640Nmpc Corpuscular HGB Conc33.9 g/cHVqvaph07.0-35.0The [facility] Access Hospital Physician GroupComment on above: Performed By: #### PILLAR TSH, PILLAR CBC, PILLAR LIPID, PILLAR BMP #### [facility] [address] [place] [address] USANRBC%0.1 /100{WBC}Normal0-0.5[facility] Comment on above:Performed By: #### PILLAR TSH, PILLAR CBC, PILLAR LIPID, PILLAR BMP #### [facility] [address] [place] [address] USAEmployee Lipid Profileon 91-01-4491OLY Cholesterol,Aelptclrvx855 mg/dLHigh0-100The [facility] Hospital Physician GroupComment on above:Result Comment: LDL ATP III CLASSIFICATION LDL less than 100 mg/dL Optimal LDL 100-129 mg/dL Near or above optimal LDL 130-159 mg/dL Borderline high LDL 160-189 mg/dL High LDL greater than 189 mg/dL Very highPerformed By: #### PILLAR TSH, PILLAR CBC, PILLAR LIPID, PILLAR BMP #### [facility] [address] [place] [address] USATriglyceride w/Ogcwcf78 mg/dLNormal0-149The [facility] Hospital Physician GroupComment on above:Result Comment: TRIG ATP III CLASSIFICATION TRIG less than 150 mg/dL Normal TRIG 150-199 mg/dL Borderline high TRIG 200-500 mg/dL High TRIG greater than 500 mg/dL Very high Standard traceable to the Center for Disease Conrtrol and Prevention (CDC) test method.Performed By: #### PILLAR TSH, PILLAR CBC, PILLAR LIPID, PILLAR BMP #### [facility] [address] [place] [address] USAVLDL SHINRMOOLTJ85 mg/dLNormalThe Critical Access Hospital Physician GroupComment on above:Performed By: #### PILLAR TSH, PILLAR CBC, PILLAR LIPID, PILLAR BMP #### [facility] [address] [place] [address] USAEmployee Thyroid Stim Hormoneon 66-72-1850Hnrpfszg Thyroid Stim Hormone1.47 u[iU]/mLNormal0.45-5.33The [facility] Access Hospital Physician GroupComment on above:Result Comment: PERFORMED BY: [place] [address] PATHOLOGIST SENIOR PROJECT MANAGER ENGINEERING THEO FIELD M.D.Performed By: #### PILLAR TSH, PILLAR CBC, PILLAR LIPID, PILLAR BMP #### [facility] [address] [place] [address] USAErythrocyte distribution width [Ratio] by Automated count Ordered By: Umer Serna on 78-04-9577Awrpdwxsvgq distribution width (RBC) [Ratio] 13.7 %Fzoyhe83.9-15.3FOhio State University Wexner Medical CenterComment on above:Performed By: #### PILLAR TSH, PILLAR CBC, PILLAR LIPID, PILLAR BMP #### [place] [address] USAErythrocytes [#/volume] in Blood by Automated countOrdered By: Umer Serna on 81-73-2336YZY (Bld) [#/Vol]5.01 10*6/uLHigh3.60-5.00[facility] Bryan HospitalComment on above:Performed By: #### PILLAR TSH, PILLAR CBC, PILLAR LIPID, PILLAR BMP #### [place] [address] USAGlucose [Mass/volume] in Serum or PlasmaOrdered By: Umer Serna on 69-18-7310Sbhidgz [Mass/Vol]91 mg/oXGtivwt89-476CrdbtnmpfParkview Health Bryan HospitalComment on above:Performed By: #### PILLAR TSH, PILLAR CBC, PILLAR LIPID, PILLAR BMP #### [place] [address] USAHematocrit [Volume Fraction] of Blood by Automated count Ordered By: Umer Serna on 05-91-8949Ypmgkbhppr (Bld) [Volume fraction]43.6 % Frdqkf52.0-46.4FOhio State University Wexner Medical CenterComment on above:Performed By: #### PILLAR TSH, PILLAR CBC, PILLAR LIPID, PILLAR BMP #### [place] [address] USAHemoglobin [Mass/volume] in BloodOrdered By: Umer Serna on 78-70-2757Zhwsntfvvh (Bld) [Mass/Vol]14.8 g/lZXeffid88.8-15.4FOhio State University Wexner Medical CenterComment on above:Performed By: #### PILLAR TSH, PILLAR CBC, PILLAR LIPID, PILLAR BMP #### [facility] [address] [place] [address] USALeukocytes [#/volume] corrected for nucleated erythrocytes in Blood by Automated counOrdered By: Umer Serna on 35-89-8878TIL corrected for nucl RBC Auto (Bld) [#/Vol]4.3 10*3/uL3.8-11.6FOhio State University Wexner Medical Center Leukocytes [#/volume] in Blood by Automated countOrdered By: Umer Renzomicaela on 56-48-8876KWB (Bld) [#/Vol]4.3 10*3/uLNormal3.8-11.6FOhio State University Wexner Medical CenterComment on above:Performed By: #### PILLAR TSH, PILLAR CBC, PILLAR LIPID, PILLAR BMP #### [facility] [address] [place] [address] USALymphocytes [#/volume] in Blood by Automated countOrdered By: Umer Serna on 62-03-9898Ickznhqhivr (Bld) [#/Vol]1.7 10*3/uLNormal1.00-4.8 [facility] HospitalComment on above:Performed By: #### PILLAR TSH, PILLAR CBC, PILLAR LIPID, PILLAR BMP #### [facility] [address] [place] [address] USALymphocytes/100 leukocytes in Blood by Automated count Ordered By: Umer Serna on 15-03-5076Aeycajkmzyi/100 WBC (Bld)39.8 %Normal. [facility] HospitalComment on above:Performed By: #### PILLAR TSH, PILLAR CBC, PILLAR LIPID, PILLAR BMP #### [facility] [address] [place] [phone] USAMCH [Entitic mass] by Automated countOrdered By: Umer Serna on 95-40-7568ZIV (RBC) [Entitic mass]29.5 zcFushkb91.7-34.3FOhio State University Wexner Medical CenterComment on above:Performed By: #### PILLAR TSH, PILLAR CBC, PILLAR LIPID, PILLAR BMP #### [facility] [address] [place] [address] USAHC Auto (RBC) [Mass/Vol]Ordered By: Umer Serna on 48-12-4101PFOS (RBC) [Mass/Vol]33.9 g/dL32.0-35.0[facility] HospitalMCV [Entitic volume] by Automated countOrdered By: Umer Serna on 99-89-1136TRL (RBC) [Entitic vol]87.0 cJJmxgrd74-806QtxkymewxParkview Health Bryan HospitalComment on above:Performed By: #### PILLAR TSH, PILLAR CBC, PILLAR LIPID, PILLAR BMP #### [facility] [address] [place] [address] USANeutrophils [#/volume] in Blood by Automated countOrdered By: Umer Serna on 78-88-6302Ldafjtifnen (Bld) [#/Vol]2.2 10*3/uLNormal1.8-7.7 [facility] HospitalComment on above:Performed By: #### PILLAR TSH, PILLAR CBC, PILLAR LIPID, PILLAR BMP #### [facility] [address] [place] [address] USANo Panel InformationOrdered By: Umer Serna on 05-06-2024 Estimated GFR (CKD-EPI)> 60.0 mL/MinParkview Health Bryan HospitalPharmacy Creatinine Clearance (ChemN/AFOhio State University Wexner Medical CenterNucleated erythrocytes [Presence] in Blood by Automated countOrdered By: Umer Serna on 17-33-9254Dorsjnnta RBC Auto Ql (Bld)0.1 /100{WBC}0-0.5FOhio State University Wexner Medical CenterPlatelet mean volume [Entitic volume] in Blood by Automated count Ordered By: Umer Serna on 48-96-6067Byykstja mean volume (Bld) [Entitic vol]8.6 fLNormal6.3-10.7FOhio State University Wexner Medical CenterComment on above:Performed By: #### PILLAR TSH, PILLAR CBC, PILLAR LIPID, PILLAR BMP #### [facility] [address] [place] [phone] USAPlatelets [#/volume] in Blood by Automated countOrdered By: Umer Serna on 69-85-3535Slosowlrk (Bld) [#/Vol]242 10*3/kCBojmnd290-816 [facility] HospitalComment on above:Performed By: #### PILLAR TSH, PILLAR CBC, PILLAR LIPID, PILLAR BMP #### [facility] [address] [place] [address] USAPotassium [Moles/volume] in Serum or PlasmaOrdered By: Umer Serna on 83-31-4405Wcyscpkvb [Moles/Vol]4.6 mmol/LNormal3.5-5.1FOhio State University Wexner Medical CenterComment on above:Performed By: #### PILLAR TSH, PILLAR CBC, PILLAR LIPID, PILLAR BMP #### [facility] [address] [place] [address] USASerum or plasma anion gap determinationOrdered By: Umer Serna on 59-09-2947Gxdqo gap [Moles/Vol]11.4 mmol/LNormal6.0-15.0[facility] Bryan HospitalComment on above:Performed By: #### PILLAR TSH, PILLAR CBC, PILLAR LIPID, PILLAR BMP #### [facility] [address] [place] [phone] USASerum or plasma high density lipoprotein (HDL) cholesterol measurementOrdered By: Umer Serna on 22-20-8678Eossobnqajl in HDL [Mass/Vol]81 mg/sGGvgjpf00-63AucerngnkParkview Health Bryan HospitalComment on above:HDL CHOL ATP- III CLASSIFICATION Cardiovascular RiskHDL > or equal to 60 mg/dL LOWHDL < 40 mg/dL HIGHResult Comment: HDL CHOL ATP-III CLASSIFICATION Cardiovascular Risk HDL > or equal to 60 mg/dL LOW HDL < 40 mg/dL HIGHPerformed By: #### PILLAR TSH, PILLAR CBC, PILLAR LIPID, PILLAR BMP #### [facility] [address] [place] [address] USASerum or plasma total cholesterol/high density lipoprotein (HDL) cholesterol mass ratOrdered By: Umer Serna on 05-06-2024 Cholesterol.total/Cholesterol in HDL [Mass ratio]2.7 {ratio}Normal<5.0[facility] Bryan HospitalComment on above:Performed By: #### PILLAR TSH, PILLAR CBC, PILLAR LIPID, PILLAR BMP #### [facility] [address] [place] [address] USASodium [Moles/volume] in Serum or PlasmaOrdered By: Umer Serna on 25-68-2836Zcdgin [Moles/Vol]141 mmol/VItapcn549-267MprowznyuParkview Health Bryan HospitalComment on above:Performed By: #### PILLAR TSH, PILLAR CBC, PILLAR LIPID, PILLAR BMP #### [facility] [address] [place] [address] USAThyrotropin [Units/volume] in Serum or PlasmaOrdered By: Umer Serna on 68-68-4164ZYO Qn1.47 m[IU]/L0.45-5.33[facility] Bryan HospitalTriglyceride [Mass/volume] in Serum or PlasmaOrdered By: Umer Serna on 25-95-8952Ohqvyixtzvto [Mass/Vol]88 mg/dL0-149[facility] Comment on above:TRIG ATP III CLASSIFICATIONTRIG less than 150 mg/dL NormalTRIG 150-199 mg/dL Borderline highTRIG 200-500 mg/dL High TRIG greater than 500 mg/dL Very highStandard traceable to the Center for Disease Conrtrol and Prevention (CDC) test method.Urea nitrogen [Mass/volume] in Serum or PlasmaOrdered By: Umer Serna on 98-09-8993Vczt nitrogen [Mass/Vol]14 mg/dLNormal7-25[facility] HospitalComment on above:Performed By: #### PILLAR TSH, PILLAR CBC, PILLAR LIPID, PILLAR BMP #### [facility] [address] [place] [address] USAUrinalysison 02-29-1613Truuutpnav (U)ClearNormalClearAdventhealth Lake Mary Er Physician GroupComment on above:Order Comment: Name Collection Type:: Clean-Voided MidstreamPerformed By: #### CUU, UA #### [place] [address] USABilirubin,UrineNegativeNormalNegativeAdventhealth Lake Mary Er Physician GroupComment on above:Order Comment: Name Collection Type:: Clean- Voided MidstreamPerformed By: #### CUU, UA #### [place] [address] USAColor (U)Light-YellowNormalYellowAdventhealth Lake Mary Er Physician GroupComment on above:Order Comment: Name Collection Type:: Clean-Voided MidstreamPerformed By: #### CUU, UA #### [place] [address] USAGlucose Ql (U)NormalNormalNormalThBoundary Community Hospital Physician GroupComment on above:Order Comment: Name Collection Type:: Clean-Voided MidstreamPerformed By: #### CUU, UA #### [place] [address] USAKetones Ql (U)NegativeNormalNegativeAdventhealth Lake Mary Er Physician GroupComment on above:Order Comment: Name Collection Type:: Clean- Voided MidstreamPerformed By: #### CUU, UA #### [place] [address] USALeukocyte esterase Test strip Ql (U)NegativeNormalNegative [facility] Physician GroupComment on above:Order Comment: Name Collection Type:: Clean-Voided MidstreamPerformed By: #### CUU, UA #### [place] [address] USANitrite,UrineNegativeNormalNegativeAdventhealth Lake Mary Er Physician GroupComment on above:Order Comment: Name Collection Type:: Clean-Voided MidstreamPerformed By: #### CUU, UA #### [place] [address] USAOccult Blood,UrineNegativeNormalNegativeThe Critical Access Hospital Physician GroupComment on above:Order Comment: Name Collection Type:: Clean- Voided MidstreamResult Comment: PERFORMED BY: [place] [address] PATHOLOGIST SENIOR PROJECT MANAGER ENGINEERING THEO FIELD M.D.Performed By: #### CUU, UA #### [place] [address] USApH (U)5.5 [pH]Normal5.0-9.0[facility] Comment on above:Order Comment: Name Collection Type:: Clean-Voided Midstream Performed By: #### CUU, UA #### [place] [address] USAProtein,UrineNegativeNormalNegativeThe Critical Access Hospital Physician GroupComment on above:Order Comment: Name Collection Type:: Clean-Voided MidstreamPerformed By: #### CUU, UA #### [place] [address] USASpecificy [place],Urine1.312Tgwpoq9.001-1.030The [facility] Hospital Physician GroupComment on above:Order Comment: Name Collection Type:: Clean- Voided MidstreamPerformed By: #### CUU, UA #### [place] [address] USAUrobilinogen,UrineNormalNormalNormalThe Critical Access Hospital Physician GroupComment on above:Order Comment: Name Collection Type:: Clean- Voided MidstreamPerformed By: #### CUU, UA #### [place] [address] USAUrine Cultureon 49-26-7593Emxqwklo identified Cx Nom (U) 15,000 colonies/ml mixed bacterial skin contaminants 2 Days PERFORMED BY: [place] [address] PATHOLOGIST SENIOR PROJECT MANAGER ENGINEERING THEO FIELD M.D.NormalThe Critical Access Hospital Physician GroupComment on above:Performed By: #### CUU, UA #### [address] [place] [address] [facility] HOSPITALAlanine aminotransferase [Enzymatic activity/volume] in Serum or PlasmaOrdered By: Umer Serna on 22-32-5915KPN [Catalytic activity/Vol] 11 U/L7-52[facility] HospitalAlbumin [Mass/volume] in Serum or Plasma by Bromocresol green (BCG) dye binding methoOrdered By: Umer Serna on 88-71-2714Dfmbukm BCG dye [Mass/Vol]4.6 g/dL3.5-5.7FOhio State University Wexner Medical CenterAlkaline phosphatase [Enzymatic activity/volume] in Serum or PlasmaOrdered By: Umer Serna on 67-93-7202YOA [Catalytic activity/Vol]39 U/E31-681JlefzhrizParkview Health Bryan HospitalAspartate aminotransferase [Enzymatic activity/volume] in Serum or PlasmaOrdered By: Umer Serna on 40-50-0472VIG [Catalytic activity/Vol] 15 U/I14-76AbqggesdhParkview Health Bryan HospitalBasophils Auto (Bld) [#/Vol]Ordered By: Umer Serna on 78-16-7373Nhgxuwrrf (Bld) [#/Vol]0.1 10*3/uL0.0-0.2FOhio State University Wexner Medical CenterBasophils/100 WBC Auto (Bld)Ordered By: Umer Serna on 86-27-7704Qnsouafsr/100 WBC (Bld)1.1 %.[facility] Bilirubin.total [Mass/volume] in Serum or PlasmaOrdered By: Umer Serna on 30-39-9957Lbrsrcbjr [Mass/Vol]0.5 mg/dL0.3-1.0[facility] Calcium [Mass/volume] in Serum or PlasmaOrdered By: Umer Serna on 04-24-2023 Calcium [Mass/Vol]9.6 mg/dL8.6-10.3FOhio State University Wexner Medical CenterCarbon dioxide, total [Moles/volume] in Serum or PlasmaOrdered By: Umer Serna on 80-39-3858RV5 [Moles/Vol]30.1 mmol/L21.0-31.0[facility] Chloride [Moles/volume] in Serum or PlasmaOrdered By: Umer Serna on 04-24-2023 Chloride [Moles/Vol]106 mmol/D03-524QbgoyhtuhParkview Health Bryan HospitalCholesterol [Mass/volume] in Serum or PlasmaOrdered By: Umer Serna on 33-00-6488Wjepwftjobz [Mass/Vol]200 mg/mC476-653OwibfbrkyParkview Health Bryan HospitalComment on above: Chol less than 200 mg/dl low riskChol 201-239 mg/dl borderline riskChol 240 mg/dl and greater high riskCholesterol in LDL Calc [Mass/Vol]Ordered By: Umer Serna on 1975Tekagqiubpe in LDL [Mass/Vol]100 mg/dL0-100Park[facility] Bryan HospitalComment on above:LDL ATP III CLASSIFICATIONLDL less than 100 mg/dL OptimalLDL 100-129 mg/dL Near or above fuuhrssJYF960-135 mg/dL Borderline highLDL 160-189 mg/dL HighLDL greater than 189 mg/dL Very highCholesterol in VLDL Calc [Mass/Vol]Ordered By: Umer Serna on 08-46-8818Vuhgiuaxcsu in VLDL [Mass/Vol]21 mg/dLParkview Health Bryan HospitalCreatinine [Mass/volume] in Serum or PlasmaOrdered By: Umer Serna on 76-09-1896Jndsecgdza [Mass/Vol]0.77 mg/dL0.60-1.20[facility] HospitalEosinophils Auto (Bld) [#/Vol] Ordered By: Umer Serna on 50-95-1566Swepuoxwvue (Bld) [#/Vol]0.1 10*3/uL0.0-0.45 [facility] HospitalEosinophils/100 WBC Auto (Bld)Ordered By: Umer Serna on 55-31-6581Eompclahkbp/100 WBC (Bld)1.8 %.[facility] HospitalErythrocyte distribution width Auto (RBC) [Ratio]Ordered By: Umer Serna on 63-57-9915Rxjtqzcitgr distribution width (RBC) [Ratio]13.8 %11.9-15.3FOhio State University Wexner Medical CenterGlobulin Calc (S) [Mass/Vol]Ordered By: Umer Serna on 41-41-7595Gzquaomw (S) [Mass/Vol]2.3 g/dLParkview Health Bryan Hospital Glucose [Mass/volume] in Serum or PlasmaOrdered By: Umer Serna on 04-24-2023 Glucose [Mass/Vol]83 mg/nG32-701PwzjuqeffParkview Health Bryan HospitalHematocrit Auto (Bld) [Volume fraction]Ordered By: Umer Serna on 50-86-2933Plakhbghwx (Bld) [Volume fraction]37.4 %34.0-46.4FOhio State University Wexner Medical CenterHemoglobin [Mass/volume] in BloodOrdered By: Umer Serna on 16-98-5288Pmkkxyhqxc (Bld) [Mass/Vol]12.6 g/dL11.8-15.4FOhio State University Wexner Medical CenterLeukocytes [#/volume] corrected for nucleated erythrocytes in Blood by Automated coun Ordered By: Umer Serna on 28-12-1851YTV corrected for nucl RBC Auto (Bld) [#/Vol]4.9 10*3/uL3.8-11.6FOhio State University Wexner Medical CenterLymphocytes Auto (Bld) [#/Vol]Ordered By: Umer Serna on 57-89-0960Omyygnqijpl (Bld) [#/Vol]1.7 10*3/uL1.00-4.8[facility] HospitalLymphocytes/100 WBC Auto (Bld) Ordered By: Umer Serna on 13-82-3185Dwaistfqfzz/100 WBC (Bld)35.4 %.[facility]H Auto (RBC) [Entitic mass]Ordered By: Umer Serna on 27-11-5672ZPY (RBC) [Entitic mass]29.5 pg24.7-34.3FOhio State University Wexner Medical CenterMCHC Auto (RBC) [Mass/Vol]Ordered By: Umer Serna on 50-72-0661HHIU (RBC) [Mass/Vol]33.7 g/dL32.0-35.0[facility] HospitalMCV Auto (RBC) [Entitic vol]Ordered By: Umer Serna on 74-62-2798BAF (RBC) [Entitic vol]87.5 fL 80-100[facility] HospitalMonocytes Auto (Bld) [#/Vol]Ordered By: Umer Serna on 59-59-2626Wdcagdpwr (Bld) [#/Vol]0.4 10*3/uL0.0-0.8[facility] HospitalMonocytes/100 WBC Auto (Bld)Ordered By: Umer Serna on 31-25-1295Rccuzcyoy/100 WBC (Bld)8.0 %.[facility] Neutrophils Auto (Bld) [#/Vol]Ordered By: Umer Serna on 41-03-3371Sercqoqzefq (Bld) [#/Vol]2.6 10*3/uL1.8-7.7FOhio State University Wexner Medical CenterNeutrophils/100 WBC Auto (Bld)Ordered By: Umer Serna on 53-38-7556Czhkooamaqi/100 WBC (Bld)53.7 %.[facility] HospitalNo Panel InformationOrdered By: Umer Serna on 40-68-8992Fxjpsmybs GFR (CKD-EPI)> 60.0 mL/MinParkview Health Bryan Hospital Nicotine MetabolitePositiveCutoff=25[facility] HospitalComment on above:Performed at: - Lab[address] [id number] Director: Gracia Muñoz MD, Phone: [phone] Creatinine Clearance (ChemN/[facility] HospitalNucleated erythrocytes [Presence] in Blood by Automated countOrdered By: Umer Serna on 04-24-2023 Nucleated RBC Auto Ql (Bld)0.1 /100{WBC}0-0.5FOhio State University Wexner Medical Center Platelet mean volume Auto (Bld) [Entitic vol]Ordered By: Umer Serna on 77-07-1614Xrfdtejj mean volume (Bld) [Entitic vol]8.8 fL6.3-10.7FOhio State University Wexner Medical CenterPlatelets Auto (Bld) [#/Vol]Ordered By: Umer Serna on 02-12-4092Zspfyfjsd (Bld) [#/Vol]212 10*3/hO054-984BofifmxtiParkview Health Bryan HospitalPotassium [Moles/volume] in Serum or PlasmaOrdered By: Umer Serna on 55-77-1539Ygksqthkl [Moles/Vol]4.5 mmol/L3.5-5.1FOhio State University Wexner Medical CenterProtein [Mass/volume] in Serum or PlasmaOrdered By: Umer Serna on 89-13-0561Bkwyllq [Mass/Vol]6.9 g/dL6.4-8.9[facility] HospitalRBC Auto (Bld) [#/Vol]Ordered By: Umer Serna on 62-60-3485RKN (Bld) [#/Vol]4.27 10*6/uL3.60-5.00[facility] Hospitalerum or plasma albumin/globulin mass ratioOrdered By: Umer Serna on 24-23-2007Kqkypit/Globulin [Mass ratio]2.0 {ratio}[facility] Hospitalerum or plasma anion gap determinationOrdered By: Umer Serna on 22-23-6887Yyuas gap [Moles/Vol]10.4 mmol/L6.0-15.0C[facility] Hospitalerum or plasma high density lipoprotein (HDL) cholesterol measurementOrdered By: Umer Serna on 04-24-2023 Cholesterol in HDL [Mass/Vol]78 mg/kR79-96BylwpyytpParkview Health Bryan Hospital Comment on above:HDL CHOL ATP-III CLASSIFICATION Cardiovascular RiskHDL > or equal to 60 mg/dL LOWHDL < 40 mg/dL HIGHSerum or plasma total cholesterol/high density lipoprotein (HDL) cholesterol mass ratOrdered By: Umer Serna on 46-25-9124Zqctyhmiqtc.total/Cholesterol in HDL [Mass ratio]2.6 {ratio}<5.0 [facility] Hospitalodium [Moles/volume] in Serum or PlasmaOrdered By: Umer Serna on 48-81-6247Ynsxlo [Moles/Vol]142 mmol/Z631-604JlfuzhdbmParkview Health Bryan HospitalThyrotropin [Units/volume] in Serum or PlasmaOrdered By: Umer Serna on 56-97-7600HOS Qn0.85 m[IU]/L0.45-5.33[facility] HospitalTriglyceride [Mass/volume] in Serum or PlasmaOrdered By: Umer Serna on 73-56-0877Yxperdywuoft [Mass/Vol]109 mg/dL0-149[facility] Comment on above:TRIG ATP III CLASSIFICATIONTRIG less than 150 mg/dL NormalTRIG 150-199 mg/dL Borderline highTRIG 200-500 mg/dL High TRIG greater than 500 mg/dL Very highStandard traceable to the Center for Disease Conrtrol and Prevention (CDC) test method.Urea nitrogen [Mass/volume] in Serum or PlasmaOrdered By: Umer Serna on 90-13-7047Gvpu nitrogen [Mass/Vol]13 mg/dL7-25[facility] HospitalWBC Auto (Bld) [#/Vol]Ordered By: Umer Serna on 59-24-7792YKW (Bld) [#/Vol]4.9 10*3/uL3.8-11.6FOhio State University Wexner Medical CenterBasophils Auto (Bld) [#/Vol]Ordered By: Elif Gonzalez on 56-22-3958Yhhhrxdgm (Bld) [#/Vol]0.0 10*3/uL0.0-0.2FOhio State University Wexner Medical CenterBasophils/100 WBC Auto (Bld) Ordered By: Elif Gonzalez on 74-25-0452Tbiiggfjf/100 WBC (Bld)1.0 %.[facility] HospitalBlood hemoglobin measurement (mass/volume)Ordered By: Elif Gonzalez on 52-57-9761Jetnmhdrbv (Bld) [Mass/Vol]13.9 g/dL11.8-15.4FOhio State University Wexner Medical CenterBlood leukocytes automated count (number/volume)Ordered By: Elif Gonzalez on 93-18-5392PDY (Bld) [#/Vol]4.7 10*3/uL4.5-11.0[facility] HospitalBody fluid albumin measurement (mass/volume)Ordered By: Elif Gonzalez on 42-89-5925Dxhzorj (Body fld) [Mass/Vol]4.3 g/dL3.2-5.5FOhio State University Wexner Medical CenterCholesterol [Mass/volume] in Serum or PlasmaOrdered By: Elif Gonzalez on 67-24-3643Nkaxpwcdjsn [Mass/Vol]223 mg/gK086-593PczwgrukxParkview Health Bryan HospitalComment on above:Chol less than 200 mg/dl low risk Chol 201-239 mg/dl borderline risk Chol 240 mg/dl and greater high riskCholesterol in LDL Calc [Mass/Vol]Ordered By: Elif Gonzalez on 30-37-4101Bngoxuvijnh in LDL [Mass/Vol]128 mg/dL0-100 [facility] HospitalComment on above:LDL ATP III CLASSIFICATION LDL less than 100 mg/dL Optimal LDL 100-129 mg/dL Near or above optimal LDL 130-159 mg/dL Borderline high LDL 160-189 mg/dL High LDL greater than 189 mg/dL Very highCholesterol in VLDL Calc [Mass/Vol]Ordered By: Elif Gonzalez on 75-40-4334Rpujfheibvo in VLDL [Mass/Vol]14 mg/dLParkview Health Bryan HospitalCreatinine and Glomerular filtration rate.predicted panel (S/P/Bld)Ordered By: Elif Gonzalez on 77-29-0722Wpwmytgboi [Mass/Vol]0.70 mg/dL 0.44-1.03[facility] HospitalEosinophils Auto (Bld) [#/Vol]Ordered By: Elif Gonzalez on 27-25-0949Rnhqzxedflt (Bld) [#/Vol]0.1 10*3/uL0.0-0.45 [facility] HospitalEosinophils/100 WBC Auto (Bld)Ordered By: Elif Gonzalez on 62-27-4854Iitbjhgswto/100 WBC (Bld)1.4 %.[facility] HospitalErythrocyte distribution width Auto (RBC) [Ratio]Ordered By: Elif Gonzalez on 79-51-5569Biecpczycrn distribution width (RBC) [Ratio]13.4 % 11.9-15.3FOhio State University Wexner Medical CenterEstimated glomerular filtration rate (GFR) non- AmericanOrdered By: Elif Gonzalez on 23-22-0265HHQ/1.73 sq M.predicted among non-blacks MDRD (S/P/Bld) [Vol rate/Area]> 60 mL/MinParkview Health Bryan HospitalGlobulin Calc (S) [Mass/Vol]Ordered By: Elif Gonzalez on 22-06-6474Xhlftacd (S) [Mass/Vol]2.6 g/dLParkview Health Bryan Hospital Hematocrit Auto (Bld) [Volume fraction]Ordered By: Elif Gonzalez on 04-05-2022 Hematocrit (Bld) [Volume fraction]41.7 %34.0-46.4FOhio State University Wexner Medical CenterLaboratory - Chemistry and Chemistry - challengeOrdered By: Elif Gonzalez on 55-58-8329Pkcztno [Mass/Vol]99 mg/kX72-507DyclmhuqwParkview Health Bryan Hospital Laboratory - Hematology and Cell countsOrdered By: Elif Gonzalez on 04-05-2022 Nucleated RBC/100 WBC (Bld) [Ratio]0.0 %0-0.5FOhio State University Wexner Medical Center Lymphocytes Auto (Bld) [#/Vol]Ordered By: Elif Gonzalez on 88-41-0813Yeimqhqlmiw (Bld) [#/Vol]1.8 10*3/uL1.00-4.8[facility] HospitalLymphocytes/100 WBC Auto (Bld)Ordered By: Elif Gonzalez on 78-09-0112Arsipuoqalc/100 WBC (Bld) 39.2 %.[facility] HospitalH Auto (RBC) [Entitic mass]Ordered By: Elif Gonzalez on 00-58-1122RIY (RBC) [Entitic mass]29.2 pg24.7-34.3FOhio State University Wexner Medical CenterMCHC Auto (RBC) [Mass/Vol]Ordered By: Elif Gonzalez on 93-52-2603GKUS (RBC) [Mass/Vol]33.3 g/dL32.0-35.0[facility] HospitalMCV Auto (RBC) [Entitic vol]Ordered By: Elif Gonzalez on 60-05-2221YCM (RBC) [Entitic vol]87.7 kU84-874YebewcwmwParkview Health Bryan HospitalMonocyte %Ordered By: Elif Gonzalez on 31-77-5869Tljvvosj %72 mg/pL30-007NrrbmziehParkview Health Bryan HospitalComment on above:TRIG ATP III CLASSIFICATION TRIG less than 150 mg/dL Normal TRIG 150-199 mg/dL Borderline high TRIG 200-500 mg/dL High TRIG greater than 500 mg/dL Very high Standard traceable to the Center for Disease Conrtrol and Prevention (CDC) test method.Monocytes Auto (Bld) [#/Vol]Ordered By: Elif Gonzalez on 04-05-2022 Monocytes (Bld) [#/Vol]0.3 10*3/uL0.0-0.8[facility] Monocytes/100 WBC Auto (Bld)Ordered By: Elif Gonzalez on 33-94-9923Akybrctbm/100 WBC (Bld)5.6 %.[facility] HospitalNeutrophils Auto (Bld) [#/Vol] Ordered By: Elif Gonzalez on 88-40-7548Zbswpuvfqnt (Bld) [#/Vol]2.5 10*3/uL1.8-7.7 [facility] HospitalNeutrophils/100 WBC Auto (Bld)Ordered By: Elif Gonzalez on 08-69-2958Xbspswubmnd/100 WBC (Bld)52.8 %.[facility] HospitalNo Panel InformationOrdered By: lEif Gonzalez on 50-52-9231Xryxfnodb GFR ()> 60 mL/MinParkview Health Bryan HospitalComment on above:GFR estimated reference range: According to KDOQI guidelines, <60 ml/min/1.73m2 is sufficient todiagnose a patient with chronic kidney disease. Pharmacy Creatinine Clearance (ChemN/[facility] HospitalPlatelet mean volume Auto (Bld) [Entitic vol]Ordered By: Elif Gonzalez on 04-05-2022 Platelet mean volume (Bld) [Entitic vol]8.2 fL6.3-10.7FOhio State University Wexner Medical CenterPlatelets Auto (Bld) [#/Vol]Ordered By: Elif Gonzalez on 48-91-9316Zogatparh (Bld) [#/Vol]258 10*3/tQ124-767TetkuwayeParkview Health Bryan HospitalProtein [Mass/volume] in Serum or PlasmaOrdered By: Elif Gonzalez on 14-56-8744Gqezhat [Mass/Vol]6.9 g/dL6.1-7.9[facility] HospitalRBC Auto (Bld) [#/Vol] Ordered By: Elif Gonzalez on 44-90-9419KIZ (Bld) [#/Vol]4.76 10*6/uL3.60-5.00 [facility] Hospitalerum or plasma alanine aminotransferase measurement without P-5'-P (enzymatic activiOrdered By: Elif Gonzalez on 01-12-5736ZKP No additional P-5'-P [Catalytic activity/Vol]16 U/U60-58RsmlovtwwCherrington Hospitalerum or plasma albumin/globulin mass ratioOrdered By: Elif Gonzalez on 41-67-1801Xgbpljr/Globulin [Mass ratio]1.7 {ratio}[facility] Hospitalerum or plasma alkaline phosphatase measurement (enzymatic activity/volume)Ordered By: Elif Gonzalez on 90-63-8090SAU [Catalytic activity/Vol]42 U/T51-56NeheeunnvCherrington Hospitalerum or plasma anion gap determinationOrdered By: Elif Gonzalez on 32-07-2268Pqnsj gap [Moles/Vol]16.2 mmol/L6.0-15.0[facility] Hospitalerum or plasma aspartate aminotransferase measurement (enzymatic activity/volume)Ordered By: Elif Gonzalez on 66-29-4616KEW [Catalytic activity/Vol]17 U/O76-98EwhviutkmCherrington Hospitalerum or plasma calcium measurement (mass/volume)Ordered By: Elif Gonzalez on 67-04-7147Ncyfxzk [Mass/Vol]10.2 mg/dL8.2-10.2FOhioHealth Mansfield Hospitalerum or plasma chloride measurement (moles/volume)Ordered By: Elif Gonzalez on 98-01-2804Mptfopqe [Moles/Vol]101 mmol/M73-156WxeuqfkkyCherrington Hospitalerum or plasma high density lipoprotein (HDL) cholesterol measurement Ordered By: Elif Gonzalez on 91-84-4085Thcrowkzhfe in HDL [Mass/Vol]81 mg/dL35-85 [facility] HospitalComment on above:HDL CHOL ATP-III CLASSIFICATION Cardiovascular Risk HDL > or equal to 60 mg/dL LOW HDL < 40 mg/dL HIGHSerum or plasma potassium measurement (moles/volume)Ordered By: Elif Gonzalez on 62-51-9923Jsutzhmyv [Moles/Vol]4.6 mmol/L3.5-5.1FOhioHealth Mansfield Hospitalerum or plasma sodium measurement (moles/volume)Ordered By: Elif Sáncheznancy on 22-16-8418Taiudv [Moles/Vol]140 mmol/B100-713QvygsggqtCherrington Hospitalerum or plasma total bilirubin measurement (mass/volume) Ordered By: Elif Sáncheznancy on 79-58-3409Cttikwbtz [Mass/Vol]0.6 mg/dL0.3-1.2 [facility] Hospitalerum or plasma total carbon dioxide measurement (moles/volume)Ordered By: Elif Carlos on 60-77-1522PL2 [Moles/Vol] 27.4 mmol/L22.0-30.0[facility] Hospitalerum or plasma total cholesterol/high density lipoprotein (HDL) cholesterol mass ratOrdered By: Elif Sáncheznancy on 06-91-5122Ukgdhyxcoah.total/Cholesterol in HDL [Mass ratio]2.8 {ratio}<5.0[facility] Hospitalerum or plasma urea nitrogen measurement (mass/volume)Ordered By: Elif Sáncheznancy on 20-55-4323Gesi nitrogen [Mass/Vol]12 mg/dL9-23[facility] HospitalTS DL <= 0.005 mIU/L Qn Ordered By: Elif Gonzalez on 50-94-2789IXR Qn1.12 m[IU]/L0.45-5.33[facility] HospitalPAP ACOG PANEL 3: 30 to 65on 82-16-0785Lct Gdln ACOG Ezohyee92-44IobpqzBkySelect Medical Specialty Hospital - TrumbullComment on above:Performed By: #### [id number] #### [facility] [address] [address] Kelvin KarenChlamydia, Nuc. Acid AmpNegativeNormalNegativeTrinity Health System [facility] Comment on above:Result Comment: Performed at: =GPerformed By: #### [id number] #### [facility] [address] [address] Kelvin KarenDIAGNOSIS:CommentUniversity Hospitals Conneaut Medical CenterComment on above:Result Comment: NEGATIVE FOR INTRAEPITHELIAL LESION OR MALIGNANCY. Performed at: WBPerformed By: #### [id number] #### [facility] [address] [address] Kelvin KarenGonococcus, Nuc. Acid AmpNegativeNormalNegativeTrinity Health System [facility] Comment on above:Result Comment: Performed at: =GPerformed By: #### [id number] #### [facility] [address] [place] [address] Kelvin KarenHPV AptimaNegativeNormalNegativeTrinity Health System Twin City Medical CenterComment on above:Result Comment: This nucleic acid amplification test detects fourteen high-risk HPV types (16,18,31,33,35,39,45,51,52,56,58,59,66,68) without differentiation. Performed at: =GPerformed By: #### [id number] #### [facility] [address] [place] [address] Kelvinjoesph KhanenMethodology:CommentNoSelect Medical Specialty Hospital - TrumbullComment on above: Result Comment: This liquid based ThinPrep(R) pap test was screened with the use of an image guided system. Performed at: WBPerformed By: #### [id number] #### [facility] [address] [place] [address] Kelvin KhanenNote:CommentNormOhio State Harding HospitalComment on above:Result Comment: The Pap smear is a screening test designed to aid in the detection of premalignant and malignant conditions of the uterine cervix. It is not a diagnostic procedure and should not be used as the sole means of detecting cervical cancer. Both false-positive and false-negative reports do occur. . Performed at: WBPerformed By: #### [id number] #### [facility] [address] [place] [address] Kelvin KarenPerformed by:CommentNormOhio State Harding HospitalComcorewell health lak[facility] on above: Result Comment: Nish Medina, Postal Service Window Clerk (ASCP) Performed at: WBPerformed By: #### [id number] #### [facility] [address] [place] [address] Kelvinjoesph KhanenSpecimen adequacy:CommentUniversity Hospitals Conneaut Medical CenterComcorewell health lakeland hospitals st[facility] hospital on above:Result Comment: Satisfactory for evaluation. Endocervical and/or squamous metaplastic cells (endocervical component) are present. Performed at: WBPerformed By: #### [id number] #### [facility] [address] [place] [address] Kelvin Phoebe..NormalThe [facility] Hospital ToledoComment on above:Result Comment: Performed at: WBPerformed By: #### [id number] #### [facility] [address] [place] [address] Kelvin KarenGLYCOHEMOGLOBIN A1Con 50-48-7768Eudtxcn [Mass/Vol]131 mg/dLUniversity Hospitals Conneaut Medical CenterComment on above:Performed By: #### A1C #### [facility] [address] [place] [address] Kelvin WmdkcSyT3z (Bld) [Mass fraction]6.2 %Critically high<=6.0The [facility] Hospital ToledoComment on above:Performed By: #### A1C #### [facility] [address] [place] [address] Kelvin KarenIRONon 45-41-2696Ibub [Mass/Vol]98.0 ug/hDPkzycd70.0-170.0The [facility] ToledoComment on above:Performed By: #### IRON #### [facility] [address] [place] [address] Kelvin KarenLIPID PROFILEon 16-90-7793SERT-HDL RATIO NORMSEE [facility] Medical CenterComment on above:Result Comment: 3.3 - 4.4 LOW RISK 4.4 - 7.1 AVERAGE RISK 7.1 - 11.0 MODERATE RISK >11.0 HIGH RISKPerformed By: #### CMP, LIPID #### [facility] [address] [place] [address] Kelvin KarenCholesterol [Mass/Vol]195 mg/dLNormal<=200[facility] Comment on above:Performed By: #### CMP, LIPID #### [facility] [address] [place] [address] Kelvin KarenCholesterol in HDL [Mass/Vol]82 mg/dLUniversity Hospitals Conneaut Medical Center Comment on above:Performed By: #### CMP, LIPID #### [facility] [address] [place], [place] [address] Kelvin KarenCholesterol in HDL [Mass/Vol]> or = 60 mg/dl - LOW CARDIOVASCULAR RISK <40 mg/dl - HIGH CARDIOVASCULAR RISKUniversity Hospitals Conneaut Medical CenterComment on above:Performed By: #### CMP, LIPID #### [facility] [address] [id number] Kelvin KarenCholesterol in LDL [Mass/Vol]101.0 mg/dLUniversity Hospitals Conneaut Medical Center Comment on above:Performed By: #### CMP, LIPID #### [facility] [address] [id number] Kelvin KarenCholesterol in LDL [Mass/Vol]SEE BELOWUniversity Hospitals Conneaut Medical Center Comment on above:Result Comment: <100 mg/dl OPTIMAL 100 - 129 mg/dl NEAR OR ABOVE OPTIMAL 130 - 159 mg/dl BORDERLINE HIGH 160 - 189 mg/dl HIGH >190 mg/dl VERY HIGHPerformed By: #### CMP, LIPID #### [facility] [address] [id number] Kelvin KarenCholesterol.total/Cholesterol in HDL [Mass ratio]2.4 {ratio}Normal [facility] Medical CenterComment on above:Performed By: #### CMP, LIPID #### [facility] [address] [id number] Kelvin KarenTriglyceride [Mass/Vol]60 mg/dLNormal<=150[facility] Comment on above:Performed By: #### CMP, LIPID #### [facility] [address] [id number] Kelvin KarenVLDL CALC12.0 mg/dLUniversity Hospitals Conneaut Medical CenterComment on above: Performed By: #### CMP, LIPID #### [facility] [address] [place], [place] [address] Kelvin KarenMG MAMM SCREEN DAYTON W CADon 92-88-7164BM MAMM SCREEN [place] W CAD Patient: RC MCGRAW Exam Date: 01/25/2020 : 1975 Gender:F Ordering : DR ELIF GONZALEZ . Admission #: [id number] Family : Order #: [id number] CLICK HERE TO VIEW EXAM RADIOLOGY REPORT PROCEDURE: MAMMOGRAM BILATERAL SCREENING DIGITAL WITH COMPUTER AIDED DETECTION COMPARISON: MG MAMM [place] SCRN W CAD DIG, 02/14/2015. INDICATIONS: Screening for malignant neoplasm of breast Calculator Name NCI Breast Cancer Risk Assessment Tool 5 Year Breast Cancer Risk 0.70% Lifetime Breast Cancer Risk 8.70% Personal Breast Cancer No Personal Ovarian Cancer No Treatments None Family Cancers Aunt-maternal with breast cancer at age 54. LOCATION: [facility] BREAST COMPOSITION: Extremely dense, which lowers the sensitivity of mammography. FINDINGS: DIAGNOSTIC CATEGORY 1--NEGATIVE NO CHANGE FROM COMPARISON ASSESSMENT. Scattered benign-appearing lymph nodes are present. RIGHT BREAST: No significant suspicious finding. LEFT BREAST: No significant suspicious finding. RECOMMENDATIONS: ROUTINE MAMMOGRAM AND CLINICAL EVALUATION IN 12 MONTHS. PLEASE NOTE: A NORMAL MAMMOGRAM DOES NOT EXCLUDE THE POSSIBILITY OF BREAST CANCER. A CLINICALLY SUSPICIOUS PALPABLE LUMP SHOULD BE BIOPSIED. Dictated by: Francesca Catherine MD on 01/26/2020 at 07:33 Approved by: Francesca Catherine MD on 01/26/2020 at 07:35NoSelect Medical Specialty Hospital - TrumbullPROF 14(COMP METB)on 42-23-2958Weogmws [Mass/Vol]4.4 g/dLNormal3.5-5.0Tr[facility] City Medical CenterComment on above:Performed By: #### CMP, LIPID #### [facility] [address] [place], [place] [id number] Kelvin KarenAlbumin/Globulin [Mass ratio]1.4 {ratio}NormalTrinity Health System Twin City Medical Center Comment on above:Performed By: #### CMP, LIPID #### [facility] [address] [place], [place] [address] Kelvin KarenALP [Catalytic activity/Vol]36 U/LCritically pdn90-565MpgTrinity Health System Twin City Medical CenterComment on above:Performed By: #### CMP, LIPID #### [facility] [address] [place], [place] [address] Kelvin KarenALT [Catalytic activity/Vol]20 U/LNormal9-52[facility] Comment on above:Performed By: #### CMP, LIPID #### [facility] [address] [place], [place] [address] Kelvin KarenAnion gap [Moles/Vol]12.9 mmol/LNormalThe [facility] Hospital ToledoComment on above:Performed By: #### CMP, LIPID #### [facility] [address] [address] Kelvin KarenAST [Catalytic activity/Vol]16 U/OAojweo50-17QgkTrinity Health System Twin City Medical Center Comment on above:Performed By: #### CMP, LIPID #### [facility] [facility] [address] [address] Kelvin KarenBilirubin Ql (U)0.8 mg/dLNormal0.2-1.3[facility]edoComment on above:Performed By: #### CMP, LIPID #### [facility] [address] [address] Kelvin KarenCalcium [Mass/Vol]9.1 mg/dLNormal8.4-10.2[facility] Comment on above:Performed By: #### CMP, LIPID #### [facility] [address] [address] Kelvin KarenChloride [Moles/Vol]102 mmol/SEebdzz00-645QwtTrinity Health System [facility] Comment on above:Performed By: #### CMP, LIPID #### [facility] [address] [address] Kelvin KarenCO2 [Moles/Vol]30.1 mmol/LCritically high22.0-30.0[facility] CenterComment on above:Performed By: #### CMP, LIPID #### [facility] [address] [place] [address] Kelvin KarenCreatinine [Mass/Vol]0.80 mg/dLNormal0.52-1.04[facility] Comment on above:Performed By: #### CMP, LIPID #### [facility] [address] [address] Kelvin KarenEGFR-AF MACANESE>60Normal>=60[facility]edoComment on above: Performed By: #### CMP, LIPID #### [facility] [address] [place] [address] Kelvin KarenEGFR-NON AF MACANESE>60Normal>=60The [facility] HospitalComment on above:Performed By: #### CMP, LIPID #### [facility] [address] [id number] Kelvin KarenGlobulin (S) [Mass/Vol]3.1 g/dLNormalThMercy Health St. Elizabeth Youngstown HospitalComment on above:Performed By: #### CMP, LIPID #### [facility] [address] [address] Kelvin KarenGlucose [Mass/Vol]97 mg/rVKyhfok84-227Hwq [facility]edoComment on above:Performed By: #### CMP, LIPID #### [facility] [address] [address] Kelvin KarenPotassium [Moles/Vol]4.0 mmol/LNormal3.4-5.0[facility] Comment on above:Performed By: #### CMP, LIPID #### [facility] [address] [address] Kelvin KarenProtein [Mass/Vol]7.5 g/dLNormal6.1-8.2[facility] CenterComment on above:Performed By: #### CMP, LIPID #### [facility] [address] [address] Kelvin KarenSodium [Moles/Vol]141 mmol/WDbzjeq594-446Sie [facility] Comment on above:Performed By: #### CMP, LIPID #### [facility] [address] [id number] Kelvin KarenUrea nitrogen [Mass/Vol]10.0 mg/dLNormal7.0-17.0[facility]edoComment on above:Performed By: #### CMP, LIPID #### [facility] [address] [id number] Kelvin KarenUrea nitrogen/Creatinine [Mass ratio]12.5 mg/mgNormalThe [facility]edoComcorewell [facility] on above:Performed By: #### CMP, LIPID #### [facility] [address] [id number] Kelvin Phoebe Vital Signs Date TimeVital SignValuePerforming VvaoxsoigObbrixuu96-15-8768 09:15-0400Body morrct256.64 cmMD Elif Gonzalez Work Phone: [phone]08-05-2024 09:15-0400 Body mass index (BMI) [Ratio]20.2 kg/m2MD Elif Gonzalez Work Phone: [phone] [place], [place] 7184508-05-2024 09:15-0400 Body yjomspdyfik29.1 [degF]MD Elif Gonzalez Work Phone: [phone] [place], [place] 7184508-05-2024 09:15-0400 Body nbitpl52.92 kgMD Elif Sáncheznancy Work Phone: [phone] [place], [place] 7184508-05-2024 09:15-0400 Diastolic blood mawmmyqf24 mm[Hg]MD Elif Gonzalez Work Phone: [phone] [place], [place] [address]184508-05-2024 09:15-0400 Heart rate91 /minMD Elif Sáncheznancy Work Phone: [phone] [place], [place] 7[address]4508-05-2024 09:15-0400 Respiratory rate18 /minMD Elif Gonzalez Work Phone: [phone] [place], [place] [address]184508-05-2024 09:15-0400 SaO2% (BldA) [Mass fraction]97 %MD Elif Gonzalez Work Phone: 1([phone] [place], [place] [address]184508-05-2024 09:15-0400 Systolic blood weceihwy126 mm[Hg]MD Elif Gonzalez Work Phone: [phone] [place] [address] Encounters Encounter DateEncounter TypeCare ProviderFacilityStart: 01-13-2025 End: 69-17-5166Bkujmd outpatient visit 15 minutesEmily A Papo GOULD Work Phone: [facility] S[facility] DERMComment on above:Melanocytic nevus of trunk (Primary Dx); Capillary angioma; Lentigines; Seborrheic keratosisStart: 01-13-2025 End: 32-69-1194ibinztmjjkFSFNN A PETITTINot AvailableStart: 01-13-2025 End: 26-53-9842Kcuyyqrenu Barros MD Work Phone: n[facility] SWS DERMStart: 01-13-2025 End: 40-65-8709Quwhntslava Barros MD Work Phone: [facility] DERMStart: 10-28-2024 End: 09-51-6704Wwthwxm encounter procedureElif Gonzalez MD Work Phone: [facility]Ul[facility]ound [place] Work Phone: Start: 10-28-2024 End: 53-22-6630slmczwiotzFboknxk M Hoy MD Work Phone: [facility] Work Phone: Start: 05-06-2024 End: 29-09-3496Gpfskywd ReferredMD Elif Hoy Work Phone: [facility] Start: 05-06-2024 End: 54-06-8337vkqldekzcdCT Elif M Hoy Work Phone: [facility] Work Phone: Start: 02-23-2024 End: 17-79-2938Ikyobeu encounter procedureMD Elif Hoy Work Phone: [facility] Work Phone: Start: 01-16-2024 End: 11-11-1818tynohsqstgIpopomw M HoyFacility:[facility] Start: 06-04-2023 End: 08-33-9567afsyiuzrjyAJ Elif M Hoy Work Phone: [facility] Work Phone: Start: 06-04-2023 End: 55-86-3004Jhlojvd encounter procedureMD Elif Hoy Work Phone: [facility]-Electrodiagnostics Work Phone: Start: 04-24-2023 End: 59-70-8659Pyhlahig ReferredMD Elif Hoy Work Phone: [facility]-Employee Benefit ScreeningStart: 04-05-2022 End: 69-74-4454Bufotlgl ReferredDO Umer Serna Work Phone: [facility]-Employee Benefit ScreeningStart: 03-06-2020 End: 51-35-9941Vihxtbz encounter procedurePAMELA ALLENFacility:F1Dgaks: 74-92-3613Knshchgrb for general adult medical examination without abnormal findingsCincinnati Children's Hospital Medical Centertart: 01-25-2020 End: 39-42-3370Qbfnccu encounter procedureDOCAITLIN GONZALEZFacility:R0Jxnsuqumj for general adult medical examination without abnormal findingsC[facility] Clinic [facility] Procedures DateProcedureProcedure DetailPerforming ClinicianStart: 10-28-2024 Ultrasonography of bilateral kidneysElif Gonzalez MD Work Phone: Plan of Treatment DateCare ActivityDetailAuthorStart: 01-12-2026 End: 05-13-4033Mlwsnfi encounter pbkbutywe48/25/2026 4:05 PM EDT Office Visit [facility] [address] [place] [address] Micaela Barros MD [address] [place] [address] [facility] DERMStart: 75-69-4137Jczvphbci vaccination Influenza Vaccine (Season Ended)[facility] HealthcareStart: 17-07-6338JxzcbvrhoUniversity [facility]als St[facility] Work Phone: Start: 64-39-9443Vqeqvrc encounter procedure Facility:N4Eyyja: 34-77-6545Vkidkoukr for malignant neoplasm of breastMammogram [facility] HealthcareStart: 02-78-7335Eaybciuhj for malignant neoplasm of cervixNOMS HealthcareStart: 12-99-8377Siezhokay for malignant neoplasm of cervixPap Smear [facility] HealthcareStart: 05-49-1243Nhyfgkjib for malignant neoplasm of colonN[facility]S Healthcare Immunizations Immunization DateImmunizationNotesCare SulgqmezIleunegq45-64-8069bvdmknjuh virus vaccine, unspecified formulationMicaela Barros MD Work Phone: [facility] Payers DatePayer CategoryPayerPolicy [id number] Health InsuranceMEDICAL MUTUAL [id number] 2..1.905096.3.57[id number] 2..1.279704.3.5[id number] 2..1.4762[id number] 2..1.569987.3.579.2.391052-21-6360Iiay-[id number] [id number] 2.[id number] 2.0.1.8[id number] 2.0.1.094530.3.579.2.531 Social History DateTypeDetailFacilityTobacco smoking status NHISUnknown if ever smokedFirelands Regional Medical [facility]tr Work Phone: Start: 60-84-8533Kdf Assigned At BirthFeProMedica Defiance Regional Hospitaltart: 01-07-2023 End: 76-65-0683Hxtanrm smoking status NHISEx-smoker (finding)[facility] Hospitaltart: 47-30-2493XzkTirvog (finding)[facility] HospitalHistory of tobacco useCurrent smokerNOMS HealthcareHistory of tobacco use Cigarette SmokerNOMS HealthcareStart: 48-72-3020Ijsendh use and exposure Smokeless tobacco non-userNOMS HealthcareStart: 22-46-5161Qppmvkgaj beverage intakeCurrent drinker of alcohol (finding)[facility] HealthcareStart: 01-13-2025 History of Social functionNOMS HealthcareStart: 03-96-6491Wlugzrg use panelNOMS HealthcareStart: 29-50-9525Sljfhdh Commentcaffeine: 1-2 cups per dayNOMS HealthcareStart: 81-65-3419Mpblhk identityIdentifies as female gender (finding) [facility] HealthcareStart: 88-51-2273Pgwxly orientationHeterosexual (finding)[facility] History of Present illness Narrative 01-13-2025 Note Date & FshzIcsxHacqiuky39-10-5664 History of Present illness Narrative* Micaela Barros MD - 01/13/2025 3:50 PM EDT Skin Check Location: Patient requests a full body skin examination Dermatologic history: no history of skin cancer, no history of atypical moles Last visit: 1 year ago Lesions: Location: back Duration: months Quality: itchy Associated symptoms: rough Treatments: cryotherapy to similar in the past Established patient All pertinent medical history, medications, and allergies were reviewed. General Exam: alert, oriented to person, place, and time, normal affect, well appearing Unaccompanied Scalp, Examined , exam limited by hair Right leg Examined Head, Face Examined Left leg Examined Neck Examined Right foot Examined Chest Examined Left foot Examined Back Examined Buttocks Examined Patient kept underwear on Abdomen Examined Digits,nails: Examined Right arm Examined Left arm Examined Lymphatics: Not examined Hands Examined Skin Exam 1. MELANOCYTIC NEVUS OF TRUNK (2) Chest (Upper Torso, Anterior), Torso - Posterior (Back) Scattered benign appearing, regular brown to light brown melanocytic papules and macules with similar morphology Counseled regarding these benign growths. Rarely, a nevus can develop into malignant melanoma, so any changing nevi should be promptly re-evaluated. 2. CAPILLARY ANGIOMA Mid Parietal Scalp Scattered brown-red papule(s). The patient was informed that angiomas are benign growths on the the skin. No treatment is necessary. 3. LENTIGINES Generalized Scattered kirk macules in sun-exposed areas. The patient was informed that lentigines are benign pigmented lesions that occur on sun-exposed andsun-damaged skin. No treatment is necessary. Recommended regular use of broad spectrum sunscreen SPF 30 or higher 4. SEBORRHEIC KERATOSIS Torso - Posterior (Back) Stuck on verrucous, kirk-brown papules and plaques. Patient was counseled regarding these benign growths. Removal is normally not necessary, but they may be removed if they are symptomatic or for cosmetic reasons. Next Visit: 1 year documented in this [facility] Radiology Diagnostic study note 10-28-2024 Note Date & KrfkRnhsQbbaaqwq11-92-7534 Radiology Diagnostic study [facility] [place] [address] [place] [address] Ultrasound Report Signed Patient: Rc Mcgraw MR#: [id number] : 1975 Acct:[id number] Age/Sex: 49 / F ADM Date: 5 Loc: Room: Type: [facility] Attending Dr: Elif Gonzalez MD Ordering Provider: Elif Gonzalez MD Date of Service: 10/28/24 US/US renal BI: R82.90 Copies to: Elif Gonzalez MD~ BILATERAL RENAL AND BLADDER ULTRASOUND CLINICAL HISTORY: Frequent UTIs. COMPARISON: None FINDINGS: Estimation of renal size is approximately 9.98 cm on the right and 10.15 cm on the left. No contourdeforming mass, shadowing stone or hydronephrosis. The urinary bladder is partially distended with a volume of 313.03 ml. No shadowing stone or focal lesion. No significant postvoid residual. Incidental note is made of fluid within the endometrial canal. US/US renal BI IMPRESSION: No acute findings. Impression dictated by: Jerald Coker Jr., D.OAzeem10/28/2024 4:02 PM Dictation Location: [address] [address] Tech: Diane Garciarachell Transcribed By: AILIN 10/28/24 1602 Dictated By: Jerald Coker Jr, DO 10/28/24 1601 Signed By: 10/28/24 1602 [facility] Evaluation note Note Date & TypeNoteFacilityEvaluation noteNo assessment information available [facility] Work Phone: Evaluation note Note Date & TypeNoteFacilityEvaluation note* Diagnosis Onset Date Resolution Status Tooth pain with chewing acute [facility] Work Phone: Evaluation note Note Date & TypeNoteFacilityEvaluation note* Diagnosis Melanocytic nevus of trunk- Primary Benign neoplasm of skin of trunk, except scrotum Capillary angioma Nevus, non-neoplastic Lentigines Seborrheic keratosis documented in this encounter [facility] Summary Purpose Family History No Family History Records Found Relationship Condition Age at Onset Recorded Date/T man mother Hypertension Unknown Advance Directives No Advanced Directives Records Found Advance Directive Response Recorded Date/ Time Advance Directives No May 1:01pm Advance Directive Response Recorded Date/ Time Advance Directives No May 2:01pm Chief Complaint and Reason for Visit Chief Complaint Pillars Chief Complaint Pillars r07.9 Chief Complaint Toothache pillarsReason for VisitTooth pain with chewing Chief Complaint Admit Date R82.90 N39.0 October 28, 2024 1:4 7pm Additional Source Comments INFORMATION SOURCE (unrecogn ized section and content) DATE CREATED AUTHOR 03/12/2020 [facility] DATE CREATED AUTHOR AUTHOR'S ORGANIZ ATION 11/01/2024 [facility] DATE CREATED AUTHOR AUTHOR'S ORGANIZ ATION 01/15/2025 [facility] EPIC Care Teams (unrecognized sec tion and content) Team Status: Inactive Member Role Status Dates Umer P Kuns , DO [facility] Attending Provider Active Elif Gonzalez MDPrilaurel oaks [facility] Care ProviderActive Team Status: Active Member Role Status Semaj Gonzalez MD Primary Care Provider Active Team Status: Inactive Member Role Status Semaj Gonzalez MD Primary Care Provider Active Umer Serna , DO CHCAttending ProviderActive Team Status: Inactive Member Role Status Semaj Gonzalez MD Primary Care Provider, Attending Pr johnathan Active Oswaldo Epps ProviderActive Team Status: Inactive Member Role Status Semaj Gonzalez MD Primary Care Provider Active Start: February 23, 2024 End: February 22manda Tammy Linares , APRNAttenjessica ProviderActiveStart: February 23, 2024 End: February 23, 2024 Team Status: Inactive Member Role Status Semaj Gonzalez MD Primary Care Provider Active Start: May 06, 2024 End: May 06anaya Senra - [facility] , DO CHCAttending ProviderActiveStart: May 06, 2024 End: May 06, 2024 Team Status: Inactive Member Role Status Semaj Gonzalez MD Primary Care Provide r, Attending Provider Active Start: October 28, 2024 End: October 28, 2024 Goals (unrecognized section and content) Goals may be documented in a n alternate sectionGoals may be documented in an alternate sectionGoals may be documented in an alternate sectionGoals may be documented in an alternate section Reason for Visit (unrecogniz ed section and content) ReasonCommentsSkin Check FOR RECORDS PERTAINING TO PATIENTS WHO ARE OR HAVE BEEN ENROLLED IN A CHEMICAL DEPENDENCY/SUBSTANCEABUSE PROGRAM, SOME INFORMATION MAY BE OMITTED. This clinical summary was aggregated from multiple sources. Caution should be exercised in using it in the provision of clinical care. This summary normalizes information from multiple sources, and as a consequence, information in this document may materially change the coding, format and clinical context of patient data. In addition, data may be omitted in some cases. CLINICAL DECISIONS SHOULD BE BASED ON THE PRIMARY CLINICAL RECORDS. [employer] provides no warranty or guarantee of the accuracy or completeness of information in this document.
[2025-06-20 17:11] LABS: Hematocrit 37.4 % (36.0-48.0); Hemoglobin 12.4 g/dL (12.0-16.0); Immature Granulocytes Abs Auto 0.03 10^3/uL (0.00-0.03); Immature Granulocytes Pct Auto 0.5 % (0.0-0.5); Lymphocytes Absolute Auto 2.0 10^3/uL (1.2-3.8); Mean Corpuscular HGB Conc 33.2 g/dL (29.9-35.2); Mean Corpuscular Hemoglobin 29.0 pg (26.7-34.0); Mean Corpuscular Volume 87.4 fL (81.0-99.0); Platelet Count 329 10^3/uL (150-450); Red Blood Count 4.28 10^6/uL (4.20-5.40); White Blood Count 6.4 10^3/uL (4.0-11.0)
[2025-06-20 17:40] LABS: Alanine Aminotransferase 38 U/L (14-59); Albumin Globulin Ratio 1.0; Albumin Level 3.7 g/dL (3.4-5.0); Alkaline Phosphatase 100 U/L (46-116); Anion Gap 11.5; Aspartate Amino Transferase 21 U/L (15-37); Blood Urea Nitrogen 8.0 mg/dL (7.0-18.0); Calcium 9.2 mg/dL (8.5-10.1); Carbon Dioxide 30.3 mmol/L (21.0-32.0); Chloride 105 mmol/L (98-107); Estimated GFR (African America >60 (>=60 mL/min/1.73m^2); Estimated GFR (Non-African Ame >60 (>=60 mL/min/1.73m^2); Globulin 3.8 g/dL; Glucose 99 mg/dL (74-106); Potassium 3.8 mmol/L (3.5-5.1); Sodium 143 mmol/L (136-145); Total Protein 7.5 g/dL (6.4-8.2)
== END 2025-06-20 16:50 | disposition home or self-care (01) ==
PROVIDERS: PCP Family Medicine; Visit Provider Family Medicine
DX: R50.9 Fever, unspecified (principal)
CPT/HCPCS: 36415; 80053; 85025; 86618